=== PATIENT | female | born 1985 | race African-American/Black ===

== ENCOUNTER → 2016-06-20 | Outpatient (CLI) | payer BC, OTHER ==
[2016-06-20 12:40] LABS: CH 33.3; CHCM 35.3; HCT 38.1 % (34.0-46.0); HDW 2.84; HGB 12.9 gm/dL (11.4-16.0); MCH 32.2 pg (25.0-35.0); MCHC 33.9 g/dL (31.0-37.0); MCV 94.8 fL (80.0-100.0); Mean Platelet Volume 7.9; RBC 4.02 m/uL (3.80-5.40); RDW 12.9 % (11.5-15.5); WBC 7.2 k/uL (3.8-10.6)
== END | disposition home or self-care (01) ==
LOC: LABWHC1 11:09
PROVIDERS: ATTEND Obstetrics & Gynecology
DX: Z34.92 Encounter for supervision of normal pregnancy, unspecified, second trimester (principal); Z3A.00 Weeks of gestation of pregnancy not specified
CPT/HCPCS: 36415; 82950; 85027; 86850

== ENCOUNTER → 2016-07-01 | Outpatient (CLI) | payer BC, OTHER | END | disposition home or self-care (01) | LOC: LABWHC1 07:23 | PROVIDERS: ATTEND Obstetrics & Gynecology | DX: O99.810 Abnormal glucose complicating pregnancy (principal); Z3A.00 Weeks of gestation of pregnancy not specified | CPT/HCPCS: 36415; 82947; 82951; 82952 ==

== ENCOUNTER → 2016-07-12 | Outpatient (CLI) | payer BC, OTHER | END | disposition home or self-care (01) | LOC: LABWHC1 08:28 | PROVIDERS: ATTEND Obstetrics & Gynecology | DX: O99.810 Abnormal glucose complicating pregnancy (principal); Z3A.00 Weeks of gestation of pregnancy not specified | CPT/HCPCS: 36415; 82951; 82952 ==

== ENCOUNTER → 2016-07-16 | Outpatient (CLI) | payer BC, OTHER ==
[2016-07-16 11:30] LABS: CHCM 35.2; HCT 36.8 % (34.0-46.0); HDW 3.09; HGB 12.8 gm/dL (11.4-16.0); MCH 32.8 pg (25.0-35.0); MCHC 34.8 g/dL (31.0-37.0); MCV 94.2 fL (80.0-100.0); WBC 7.5 k/uL (3.8-10.6)
== END ==
LOC: LABWHC1 10:47
PROVIDERS: ATTEND Obstetrics & Gynecology
DX: Z34.82 Encounter for supervision of other normal pregnancy, second trimester (principal)
CPT/HCPCS: 36415; 82950; 85027

== ENCOUNTER 2016-09-06 06:00 | Inpatient (IN) | payer BC, OTHER ==
--- NOTE | 2016-09-05 19:50 | P.HPOB ---
History of Present Illness H&P Date: 09/05/16 Chief Complaint: Induction of labor This is a 31-year-old female 5 para 2 with an estimated date of confinement of 09/10/2016, estimated gestational age of 39-3/7 weeks, who presents for induction of labor. Her has been uncomplicated by gestational diabetes on DiaBeta for control. She has been fairly well controlled with this medication and diet. She has been getting routine nonstress tests. She has been feeling considerable pressure and irregular contractions. She admits to good movement and denies rupture membranes. labs: RPR-nonreactive HIV-nonreactive Random glucose-74 Hepatitis B surface antigen-negative Hemoglobin-12.4 Rubella-immune Blood type-B- Antibody screen-negative Obstetrical ultrasound-normal anatomy One hour Glucola-132, repeat-170 RhoGAM was given at approximately 28 weeks Group B streptococcus-negative, positive in previous Obstetrical history: . History of 2 vaginal deliveries at term. History of 1 miscarriage and 1 termination of . Gynecologic history: No history of sexual transmitted diseases. Review of Systems Constitutional: Denies chills, Denies fever Ears, nose, mouth and throat: Denies headache, Denies sore throat Cardiovascular: Denies chest pain, Denies shortness of breath Respiratory: Denies cough Gastrointestinal: Reports abdominal pain (Irregular contractions) Genitourinary: Reports abnormal vaginal bleeding, Reports pelvic pain, Reports Musculoskeletal: Reports low back pain Neurological: Denies numbness, Denies weakness Past Medical History Past Medical History: No Reported History History of Any Multi-Drug Resistant Organisms: None Reported Past Surgical History: Appendectomy, Hernia Repair (Umbilical hernia repair) Additional Past Surgical History / Comment(s): D&C Past Psychological History: No Psychological Hx Reported Smoking Status: Never smoker Past Alcohol Use History: None Reported Past Drug Use History: None Reported Medications and Allergies Home Medications Medication Instructions Recorded Confirmed Type Pnv with Ca,No.72/Iron/FA 1 each PO DAILY 03/11/16 08/28/16 History [ Plus Tablet] glyBURIDE [Glyburide] 1.25 mg PO BID 08/08/16 08/28/16 History Allergies Allergy/AdvReac Type Severity Reaction Status Date / Time peanut Allergy Mild Rash/Hives Verified 08/28/16 00:26 Exam Osteopathic Statement: *. No significant issues noted on an osteopathic structural exam other than those noted in the History and Physical/Consult. HEENT: Within normal limits Heart: Regular rate and rhythm Lungs: Clear to auscultation bilaterally Abdomen: Cervix: 3 cm/70%/-2 station heart tones: 140s by Doppler Extremities: Negative Homans Assessment and Plan (1) 39 weeks gestation of Status: Acute (2) Gestational diabetes mellitus (GDM) Status: Acute Plan: Proceed with oxytocin induction of labor. Expectant management. Close monitoring of blood sugars. We'll give prophylactic antibiotics due to history of group B streptococcus.
[2016-09-06] MEDS ORDERED: METHYLERGONOVINE 0.2 MG/ML 1 ML AMP IM PRN (06:27)
[2016-09-06] MEDS ORDERED: CARBOPROST TROMETHAMINE 250 MCG/ML 1 ML AMP IM PRN (06:27)
[2016-09-06] MEDS ORDERED: OXYTOCIN 30 UNITS/500 ML NS 30 UNIT in SALINE 1 500ML.BAG IV SCH ×2 (06:27→12:48)
[2016-09-06] MEDS ORDERED: TERBUTALINE 1 MG/ML VIAL SQ PRN (06:27)
[2016-09-06] MEDS ORDERED: LIDOCAINE 1% 20 ML VIAL (10MG/ML) FOR IV START INTRADERMA PRN (06:27)
[2016-09-06] MEDS ORDERED: OXYTOCIN 10 UNIT/ML 1 ML VIAL IM PRN (06:27)
[2016-09-06] MEDS ORDERED: LIDOCAINE 1% (PF) 10 MG/ML (30 ML SDV) SQ PRN (06:27)
[2016-09-06] MEDS ORDERED: AMPICILLIN 2,000 MG in SODIUM CHLORIDE 0.9% 100 ML IVPB STA (06:27)
[2016-09-06 06:33] LABS: Glucose,Whole Blood 80 mg/dL (75-99)
[2016-09-06 06:43] VITALS: BMI 30.1
[2016-09-06] MEDS: LACTATED RINGERS 1,000 ML IV SCH ×3 (06:49→10:51)
[2016-09-06 06:54] LABS: Basophils % (A) 0 %; CHCM 34.7; Eosinophils # (A) 0.1 k/uL (0-0.7); Eosinophils % (A) 2 %; HCT 36.5 % (34.0-46.0); HGB 12.4 gm/dL (11.4-16.0); Luc # (Auto) 0.13; Luc % (Auto) 2; Lymphocytes # (A) 1.7 k/uL (1.0-4.8); Lymphocytes % (A) 30 %; MCH 31.5 pg (25.0-35.0); MCHC 33.9 g/dL (31.0-37.0); MCV 92.9 fL (80.0-100.0); Mean Platelet Volume 8.3; Monocytes # (A) 0.3 k/uL (0-1.0); Monocytes % (A) 5 %; Neutrophils # (A) 3.2 k/uL (1.3-7.7); Neutrophils % (A) 59 %; RBC 3.93 m/uL (3.80-5.40); RDW 14.3 % (11.5-15.5); WBC 5.4 k/uL (3.8-10.6); WBC (Perox) 5.58
[2016-09-06 08:25] LABS: Hemoglobin A1C 4.7 % (4.2-6.1)
[2016-09-06] MEDS ORDERED: fentaNYL (PF) 50 MCG/ML 5 ML AMP ONE (09:00)
[2016-09-06] MEDS ORDERED: BUPIVACAINE (PF) 0.25% 30 ML VIAL ONE (09:00)
[2016-09-06] MEDS ORDERED: SODIUM CHLORIDE 0.9% 100 ML BAG ONE (09:00)
[2016-09-06] MEDS ORDERED: AMPICILLIN 1,000 MG in SODIUM CHLORIDE 0.9% 50 ML IVPB SCH (10:30)
[2016-09-06 11:15] LABS: Glucose,Whole Blood 71 mg/dL (75-99)
[2016-09-06] MEDS ORDERED: SIMETHICONE 80 MG CHEWABLE PO PRN (12:48)
[2016-09-06] MEDS ORDERED: diphenhydrAMINE 50 MG/ML 1 ML VIAL IVP PRN ×2 (12:48)
[2016-09-06] MEDS ORDERED: diphenhydrAMINE 50 MG CAP PO PRN (12:48)
[2016-09-06] MEDS ORDERED: BENZOCAINE/MENTHOL SPRAY 1 GM/SPRAY AEROSOL TOPICAL PRN (12:48)
[2016-09-06] MEDS ORDERED: HYDROCORTISONE 2.5% RECTAL CREAM 30 GM TUBE RECTAL PRN (12:48)
[2016-09-06] MEDS ORDERED: LANOLIN CREAM 5 GM TUBE TOPICAL PRN (12:48)
[2016-09-06] MEDS ORDERED: diphenhydrAMINE 25 MG CAP PO PRN (12:48)
[2016-09-06] MEDS ORDERED: Acetaminophen-Codeine 300-30mg TAB PO PRN (12:48)
[2016-09-06] MEDS ORDERED: ACETAMINOPHEN TAB 325 MG TAB PO PRN (12:48)
[2016-09-06] MEDS ORDERED: ZOLPIDEM 5 MG TAB PO PRN (12:48)
[2016-09-06] MEDS ORDERED: WITCH HAZEL 1 EACH MED..PAD TOPICAL PRN (12:48)
--- NOTE | 2016-09-06 13:37 | P.PROBDLV ---
Vaginal Delivery Note - . Vaginal Delivery Note: The patient progressed to complete dilation after oxytocin induction of labor and artificial rupture membranes with clear fluid noted. She did receive epidural anesthesia. Once reaching complete dilation, she began pushing. Infant's head came to a crown. With one further push, the infant's head delivered across the perineum followed by the remainder of the shoulder and the rest of the body. was placed on mother's abdomen and nose and mouth were bulb suctioned. Cord was clamped and cut and was taken to warmer for evaluation. A viable female was noted with scores of 8 at 1 minute and 9 at 5 minutes and weight of 7 lbs. 14 oz. Placenta delivered manually after waiting approximately 15-20 minutes. It was noted to be mildly adherent however no placental pieces were palpated after placing a gloved hand back inside the uterine cavity. Placenta appeared intact. Three- vessel cord was noted. Uterus contracted well after oxytocin was given and uterine massage was carried out. Inspection of the perineum revealed a very small abrasion periurethrally. This was noted to be hemostatic. Estimated blood loss is approximately 200 mL's. Mother and infant are in stable condition.
[2016-09-06] MEDS: IBUPROFEN 600 MG TAB PO PRN ×2 (16:16→22:51)
[2016-09-06] MEDS ORDERED: Rhogam IMMUNE GLOBULIN 1,500 UNIT/1 ML IM ONE (20:59)
[2016-09-06] MEDS: Acetaminophen-Codeine 300-30mg TAB PO PRN (21:08)
[2016-09-06] MEDS: SENNOSIDES-DOCUSATE SODIUM 1 EACH TAB PO SCH (21:10)
[2016-09-07] MEDS: Acetaminophen-Codeine 300-30mg TAB PO PRN ×3 (03:32→11:36)
[2016-09-07 04:15] VITALS: RESP 18
[2016-09-07] MEDS: IBUPROFEN 600 MG TAB PO PRN ×2 (05:55→13:23)
[2016-09-07] MEDS: SENNOSIDES-DOCUSATE SODIUM 1 EACH TAB PO SCH (07:44)
[2016-09-07 08:04] VITALS: BP 101/60; PULSE 82; TEMP 98.5
[2016-09-07 08:04] LABS: Basophils % (A) 0 %; CH 31.9; Eosinophils # (A) 0.1 k/uL (0-0.7); Eosinophils % (A) 1 %; HCT 31.7 % (34.0-46.0); HDW 3.28; HGB 10.8 gm/dL (11.4-16.0); Luc # (Auto) 0.09; Luc % (Auto) 1; Lymphocytes # (A) 1.3 k/uL (1.0-4.8); Lymphocytes % (A) 18 %; MCHC 33.9 g/dL (31.0-37.0); MCV 94.5 fL (80.0-100.0); Mean Platelet Volume 8.2; Monocytes # (A) 0.3 k/uL (0-1.0); Monocytes % (A) 4 %; Neutrophils # (A) 5.5 k/uL (1.3-7.7); Neutrophils % (A) 76 %; RBC 3.36 m/uL (3.80-5.40); RDW 14.3 % (11.5-15.5); WBC 7.3 k/uL (3.8-10.6); WBC (Perox) 7.14
--- NOTE | 2016-09-07 08:51 | P.DS ---
Providers Date of admission: 09/06/16 06:09 Expected date of discharge: 09/07/16 Attending physician: Allegra Blackwell Primary care physician: Stated None - Discharge Diagnosis(es) (1) 39 weeks gestation of Current Visit: Yes Status: Acute (2) Gestational diabetes mellitus (GDM) Current Visit: Yes Status: Acute Hospital Course: This is a 31-year-old female 5 para 2 at 39-2/7 weeks who presented for induction of labor. She underwent oxytocin induction of labor and delivered vaginally a viable female infant with scores of 8 at 1 minute and 9 at 5 minutes and infant weight of 7 lbs. 14 oz. Her course has been essentially uncomplicated although she does complain of severe cramping. She has been using ibuprofen and Tylenol 3 with some relief. Lochia is decreasing. She denies any large clots. Vital signs are stable. Abdomen is soft with fundus firm and nontender. Extremities show negative Homans. Impression is status post vaginal delivery day #1. Plan is to discharge home today per patient request. She will be given prescriptions for ibuprofen and Tylenol 3 and she is advised alternate between these medications. She will also be given a prescription for a breast pump although right now she is bottle feeding. She is advised follow-up in the office in 6 weeks for a check. Routine instructions are given. She is advised to call the office if she has any further questions or concerns prior to her appointment time. Procedures: Oxytocin induction of labor Spontaneous vaginal delivery of a viable female infant on 09/06/2016. Patient Condition at Discharge: Stable Plan - Discharge Summary New Discharge Prescriptions: Acetaminophen-Codeine 300-30mg [Tylenol w/codeine #3] 1 each PO Q4HR PRN #30 tab PRN Reason: Mild Pain exceeding Tylenol Ibuprofen [Motrin] 600 mg PO Q6HR PRN #60 tab PRN Reason: Mild Pain Or Fever >= 100.5 Discharge Medication List Pnv with Ca,No.72/Iron/FA [ Plus Tablet] 1 tab PO DAILY 03/11/16 [ History] Acetaminophen-Codeine 300-30mg [Tylenol w/codeine #3] 1 each PO Q4HR PRN #30 tab 09/07/16 [Rx] Ibuprofen [Motrin] 600 mg PO Q6HR PRN #60 tab 09/07/16 [Rx] Follow up Appointment(s)/Referral(s): Allegra Blackwell DO [Doctor of Osteopathic Medicine] - 6 Weeks Activity/Diet/Wound Care/Special Instructions: Instructions 1. Do not begin any exercise program for 3 weeks. 2. Do not resume sexual relations for 3 weeks or longer if uncomfortable. 3. You may take tub baths or showers at any time. 4. You may use tampons if desired after 3 weeks. 5. Keep the area of episiotomy (stitches) clean and dry. 6. If you are not nursing, wear a good fitting, supportive bra during the day and limit fluid intake for at least 1 week to prevent breast engorgement. 7. Call the office, [phone], within the next week to make appointment for your 6 week checkup if it has not already been made. 8. Report any of the following occurrences to the doctor promptly: a. Heavy, excessive bleeding b. Chills, fever c. Burning or frequency of urination d. Pain or redness and breasts if nursing e. Increasing pain or swelling in episiotomy (stitches). In addition to the above instructions, the following additional should be followed: 1. No heavy lifting or straining (exercising) until after 6 week checkup. 2. Keep abdominal incision clean and dry: You may wear a dressing if more comfortable. 3. Make office appointment for 10 days after going home or as instructed by her doctor. Discharge Disposition: HOME SELF-CARE
== END 2016-09-07 16:00 | disposition home or self-care (01) | DRG 775 ==
LOC: 4FBP 06:09
PROVIDERS: ADMIT Obstetrics & Gynecology; ATTEND Obstetrics & Gynecology
PROC: 3E033VJ Introduction of Other Hormone into Peripheral Vein, Percutaneous Approach (ICD-10-PCS; principal; 2016-09-06)
PROC: 10E0XZZ Delivery of Products of Conception, External Approach (ICD-10-PCS; principal; 2016-09-06)
PROC: 00HU33Z Insertion of Infusion Device into Spinal Canal, Percutaneous Approach (ICD-10-PCS; principal; 2016-09-06)
PROC: 3E0R3CZ (ICD-10-PCS; principal; 2016-09-06)
PROC: 10907ZC Drainage of Amniotic Fluid, Therapeutic from Products of Conception, Via Natural or Artificial Opening (ICD-10-PCS; principal; 2016-09-06)
DX: O24.425 Gestational diabetes mellitus in childbirth, controlled by oral hypoglycemic drugs (principal); O99.824 Streptococcus B carrier state complicating childbirth; Z37.0 Single live birth; Z3A.39 39 weeks gestation of pregnancy; Z79.84 Long term (current) use of oral hypoglycemic drugs
CPT/HCPCS: 83036; 85025; 85461; 88307

== ENCOUNTER 2017-06-29 04:05 | Outpatient (CLI) | payer BC, OTHER ==
[2017-06-29 04:24] LABS: Glucose,Whole Blood 97 mg/dL (75-99)
[2017-06-29 04:37] LABS: Appearance,Urine Cloudy (Clear); Bacteria,Urine Rare /hpf; Bilirubin,Urine Negative (Negative); Blood,Urine Negative (Negative); Color,Urine Yellow; Glucose,Urine (UA) Negative (Negative); Ketones,Urine 3+ (Negative); Leukocyte Esterase,Urine Negative (Negative); Mucus,Urine Moderate /hpf; Nitrite,Urine Negative (Negative); Protein,Urine 1+ (Negative); RBC,Urine 1 /hpf (0-5); Specific Gravity,Urine 1.026 (1.001-1.035); Squamous Epithelial Cell,Urine 6 /hpf (0-4); WBC,Urine 1 /hpf (0-5)
[2017-06-29] MEDS ORDERED: ONDANSETRON 4 MG/2 ML VIAL IVP STA (04:44)
[2017-06-29] MEDS ORDERED: LACTATED RINGERS 1,000 ML IV SCH ×2 (04:45→05:45)
[2017-06-29 04:51] VITALS: BP 119/69; PULSE 100; RESP 16; TEMP 97.3
[2017-06-29 05:02] LABS: Basophils % (A) 0 %; Eosinophils % (A) 0 %; HGB 11.2 gm/dL (11.4-16.0); Lymphocytes # (A) 0.7 k/uL (1.0-4.8); Lymphocytes % (A) 12 %; MCH 31.2 pg (25.0-35.0); MCV 94.5 fL (80.0-100.0); Mean Platelet Volume 7.6; Monocytes # (A) 0.3 k/uL (0-1.0); Monocytes % (A) 5 %; Neutrophils # (A) 4.4 k/uL (1.3-7.7); Neutrophils % (A) 82 %; Platelet Count 178 k/uL (150-450); RDW 12.6 % (11.5-15.5); WBC 5.4 k/uL (3.8-10.6)
[2017-06-29 05:14] LABS: ALT 16 U/L (9-52); AST 19 U/L (14-36); Albumin 3.6 g/dL (3.5-5.0); Alkaline Phosphatase 72 U/L (38-126); Amylase 113 U/L (30-110); Anion Gap 10 mmol/L; Blood Urea Nitrogen 8 mg/dL (7-17); Calcium 8.8 mg/dL (8.4-10.2); Carbon Dioxide 20 mmol/L (22-30); Chloride 106 mmol/L (98-107); Glucose 94 mg/dL (74-99); Lipase 338 U/L (23-300); Magnesium 1.7 mg/dL (1.6-2.3); Phosphorus 3.2 mg/dL (2.5-4.5); Potassium 3.4 mmol/L (3.5-5.1); Sodium 136 mmol/L (137-145); Total Bilirubin 0.4 mg/dL (0.2-1.3); Total Protein 6.6 g/dL (6.3-8.2)
--- NOTE | 2017-07-20 08:43 | P.MSEPDOC ---
Presenting Problems - Arrival Data Date of Arrival on Unit: 06/29/17 Time of Arrival on Unit: 04:06 Mode of Transport: Wheelchair - Complaint OB-Reason for Admission/Chief Complaint: Acute Nausea/Vomiting, Pain Comment: n/v since 1800, back pain, abd cramps that shoot down her legs Medical History - Information : 4 Para: 3 Term: 3 : 0 Abortions: Spontaneous or Elective: 0 Number of Living Children: 3 - Gestational Age Gestational Age by YANG (wks/days): 27 Weeks and 3 Days - History Complications: GDM, Smoker Review of Systems - Review of Systems Constitutional: No problems Breast: No problems ENT: No problems Cardiovascular: No problems Respiratory: No problems Gastrointestinal: No problems Genitourinary: No problems Musculoskeletal: No problems Neurological: No problems Skin: No problems Vital Signs - Temperature Temperature: 97.3 F Temperature Source: Temporal Artery Scan - Pulse Right Pulse Rate: 100 Pulse Assessment Method: Pulse Oximetry - Respirations Respiratory Rate: 16 O2 Sat by Pulse Oximetry: 98 - Blood Pressure Right Arm Blood Pressure: 119/69 Blood Pressure Mean: 85 Blood Pressure Source: Automatic Cuff Medical Screen Scoring (Pre) - Cervical Exam Dilation: Exam Deferred Effacement: Exam Deferred - Uterine Contractions Frequency: N/A Duration: N/A Intensity: N/A - Maternal Vital Signs Maternal Temperature: N/A Maternal Blood Pressure: N/A Signs of Preeclampsia: N/A - Pain Assessment Pain Location and Character: Abdomen Pain Scale Used: Numeric (1 - 10) Pain Intensity: 7 Pain Management Goal: 3 Pain Description: *Acute, Cramping, Shooting, Sore Pain Frequency: Intermittent Pain Duration: 6 Pain Duration Units: Hours Pain Behavior: Vocalization Pain Aggravating Factors: None - Total Score Total Score (Pre): 0 - Level of Risk Level of Risk: Low (0-5) Physician Notification (Pre) - Physician Notified Physician Notified Date: 06/29/17 Physician Notified Time: 04:43 Physician/Practitioner Notifed:: Dr Parnell - Notification Comment Comment: reported on c/o, n/v, UA results, vitals, fhts, no cntrx per pt or on monitor. abd soft and non tender. orders for IV, labs, zofran Medical Screen Scoring (Post) - Maternal Vital Signs Maternal Temperature: N/A Maternal Blood Pressure: N/A Signs of Preeclampsia: N/A Maternal Respirations: N/A - Pain Assessment Pain Location and Character: Back Pain Scale Used: Numeric (1 - 10) Pain Intensity: 4 Pain Frequency: Intermittent Pain Behavior: Vocalization - Total Score Total Score (Post): 0 Physician Notification (Post) - Physician Notified Physician Notified Date: 06/29/17 Physician Notified Time: 09:45 Physician/Practitioner Notified:: aleta Spoke With: aleta New Order Received: Yes (discharge home with instructions) - Notification Comment Comment: flu symtoms. lab work. v/n. iv hydration. Disposition - Disposition OB Disposition: Discharge to home Discharge Date: 06/29/17 Discharge Time: 10:00 I agree with the RN Medical Screening Exam: Yes Risk & Benefit of care provided described in d/c instruction: Yes Diagnosis: VOMITING OF , UNSPECIFIED
== END 2017-06-29 10:00 | disposition home or self-care (01) ==
LOC: FBPOP 04:05
PROVIDERS: ATTEND Obstetrics & Gynecology
DX: O21.9 Vomiting of pregnancy, unspecified (principal); Z3A.27 27 weeks gestation of pregnancy; O99.332 Smoking (tobacco) complicating pregnancy, second trimester
CPT/HCPCS: 99214; 96360; 96366; 96367; 96375; 80053; 82150; 83690; 83735; 84100; 85025; 81001; J2405

== ENCOUNTER 2017-08-04 09:33 | Outpatient (CLI) | payer BC, OTHER ==
[2017-08-04] MEDS ORDERED: BETAMET ACET-BETAMETH SOD PHOS 6 MG/ML VIAL IM SCH (10:00)
[2017-08-04 10:40] VITALS: BP 109/75; PULSE 90; RESP 16; TEMP 96.8
--- NOTE | 2017-09-20 08:50 | P.MSEPDOC ---
Presenting Problems - Arrival Data Date of Arrival on Unit: 08/04/17 Time of Arrival on Unit: 09:30 Mode of Transport: Ambulatory Medical History - Information : 4 Para: 3 Term: 3 : 0 Abortions: Spontaneous or Elective: 0 Number of Living Children: 3 - Gestational Age Gestational Age by YANG (wks/days): 32 Weeks and 4 Days Vital Signs - Temperature Temperature: 96.8 F Temperature Source: Temporal Artery Scan - Pulse Brachial Pulse Rate: 90 Pulse Assessment Method: Automatic Cuff - Respirations Respiratory Rate: 16 Oxygen Delivery Method: Room Air O2 Sat by Pulse Oximetry: 97 - Blood Pressure Right Arm Sitting Blood Pressure: 109/75 Blood Pressure Mean: 86 Blood Pressure Source: Automatic Cuff Medical Screen Scoring (Post) - Cervical Exam Dilation: Exam Deferred Effacement: Exam Deferred - Uterine Contractions Frequency: N/A Duration: N/A Intensity: N/A - Maternal Vital Signs Maternal Temperature: N/A Maternal Blood Pressure: N/A Signs of Preeclampsia: N/A Maternal Respirations: N/A - Pain Assessment Pain Intensity: 0 - Maternal Trauma Maternal Trauma: N/A - Assessment Heart Rate: 135 Heart Rate - NICHD Category: Category I (Normal) = 0 NST: Reactive Position: N/A Station: N/A - Total Score Total Score (Post): 0 - Post Treatment Level of Risk Post Treatment Level of Risk: N/A Physician Notification (Post) - Physician Notified Physician Notified Date: 08/04/17 Physician Notified Time: 10:25 Physician/Practitioner Notified:: Dr Blackwell New Order Received: Yes - Notification Comment Comment: pt was sent from the office for NST and Celestone. pt will return to the unit tomorrow for her second dose. Disposition - Disposition OB Disposition: Physician follow up in office, Discharge to home, Written follow up instructions reviewed Discharge Date: 08/04/17 Discharge Time: 10:26 I agree with the RN Medical Screening Exam: Yes Risk & Benefit of care provided described in d/c instruction: Yes Diagnosis: LABOR WITHOUT DELIVERY, THIRD TRIMESTER
== END 2017-08-04 10:26 | disposition home or self-care (01) ==
LOC: FBPOP 09:33
PROVIDERS: ATTEND Obstetrics & Gynecology
DX: O60.03 Preterm labor without delivery, third trimester (principal); Z3A.32 32 weeks gestation of pregnancy
CPT/HCPCS: 59025; 96372; J0702

== ENCOUNTER 2017-08-05 10:03 | Outpatient (CLI) | payer BC, OTHER ==
[2017-08-05 10:22] VITALS: BP 109/71; PULSE 100; RESP 16; TEMP 97.9
[2017-08-05] MEDS ORDERED: BETAMET ACET-BETAMETH SOD PHOS 6 MG/ML VIAL IM ONE (10:30)
--- NOTE | 2017-08-05 10:56 | P.MSEPDOC ---
Presenting Problems - Arrival Data Date of Arrival on Unit: 08/05/17 Time of Arrival on Unit: 10:09 Mode of Transport: Ambulatory - Complaint OB-Reason for Admission/Chief Complaint: Celestone Injection Medical History - Information : 4 Para: 3 Term: 3 : 0 Abortions: Spontaneous or Elective: 0 Number of Living Children: 3 - Gestational Age Gestational Age by YANG (wks/days): 31 Weeks and 2 Days Review of Systems - Review of Systems Constitutional: No problems Breast: No problems ENT: No problems Cardiovascular: No problems Respiratory: No problems Gastrointestinal: No problems Genitourinary: No problems Musculoskeletal: No problems Neurological: No problems Skin: No problems Vital Signs - Temperature Temperature: 97.9 F Temperature Source: Oral - Pulse Right Brachial Pulse Rate: 100 Pulse Assessment Method: Automatic Cuff - Respirations Respiratory Rate: 16 Oxygen Delivery Method: Room Air - Blood Pressure Right Arm Blood Pressure: 109/71 Blood Pressure Mean: 83 Blood Pressure Source: Automatic Cuff Medical Screen Scoring (Pre) - Cervical Exam Dilation: Exam Deferred - Maternal Vital Signs Maternal Temperature: N/A Signs of Preeclampsia: N/A - Total Score Total Score (Pre): 0 Physician Notification (Pre) - Physician Notified Physician Notified Date: 08/05/17 Physician Notified Time: 10:25 New Order Received: No - Notification Comment Comment: pt here for second dose of celestone injection Physician Notification (Post) - Notification Comment Comment: second dose of celestone and sent home Disposition - Disposition OB Disposition: Discharge to home Discharge Date: 08/05/17 Discharge Time: 10:40 I agree with the RN Medical Screening Exam: Yes Risk & Benefit of care provided described in d/c instruction: Yes Diagnosis: LABOR WITHOUT DELIVERY, THIRD TRIMESTER
== END 2017-08-05 10:40 | disposition home or self-care (01) ==
LOC: FBPOP 10:03
PROVIDERS: ATTEND Obstetrics & Gynecology
DX: O60.03 Preterm labor without delivery, third trimester (principal); Z3A.31 31 weeks gestation of pregnancy
CPT/HCPCS: 59025; 99214; 96372; J0702

== ENCOUNTER 2017-09-05 00:16 | Outpatient (CLI) | payer BC, OTHER ==
[2017-09-05 02:06] VITALS: BP 102/68; PULSE 100; RESP 16; TEMP 96.6
--- NOTE | 2017-09-10 07:55 | P.MSEPDOC ---
Presenting Problems - Arrival Data Date of Arrival on Unit: 09/05/17 Time of Arrival on Unit: 00:16 Mode of Transport: Ambulatory - Complaint OB-Reason for Admission/Chief Complaint: Possible Onset of Labor Medical History - Information : 4 Para: 3 Term: 3 : 0 Abortions: Spontaneous or Elective: 0 Number of Living Children: 3 - Gestational Age Gestational Age by YANG (wks/days): 37 Weeks and 1 Days Review of Systems - Review of Systems Constitutional: No problems Breast: No problems ENT: No problems Cardiovascular: No problems Respiratory: No problems Gastrointestinal: No problems Genitourinary: No problems Musculoskeletal: No problems Neurological: No problems Skin: No problems Vital Signs - Temperature Temperature: 96.6 F Temperature Source: Temporal Artery Scan - Pulse Right Brachial Pulse Rate: 100 Pulse Assessment Method: Automatic Cuff - Respirations Respiratory Rate: 16 Oxygen Delivery Method: Room Air - Blood Pressure Right Arm Blood Pressure: 102/68 Blood Pressure Mean: 79 Blood Pressure Source: Automatic Cuff Medical Screen Scoring (Pre) - Cervical Exam Dilation: 4-7 cm = 2 Membranes: Intact - Uterine Contractions Frequency: > 5 minutes apart = 1 Duration: N/A Intensity: N/A - Maternal Vital Signs Maternal Temperature: N/A Maternal Blood Pressure: N/A Signs of Preeclampsia: N/A Maternal Respirations: N/A - Pain Assessment Pain Location and Character: Abdomen Pain Scale Used: Numeric (1 - 10) Pain Intensity: 5 Pain Aggravating Factors: Contractions - Maternal Trauma Maternal Trauma: N/A - Assessment Baseline FHR: 135 Heart Rate - NICHD Category: Category I (Normal) = 0 NST: Reactive Position: N/A Station: N/A - Total Score Total Score (Pre): 3 - Level of Risk Level of Risk: Low (0-5) Physician Notification (Pre) - Physician Notified Physician Notified Date: 09/05/17 Physician Notified Time: 01:37 Physician/Practitioner Notifed:: Dr. Parnell Spoke With: Dr. Parnell New Order Received: Yes - Notification Comment Comment: Dr. Parnell called and given report on pt in. triage. Pt c/o. Reactive nst, vag exam of 4/60/-2. with no change after one hour. Irregular. contractions. Orders recieved to d/c pt to home. Disposition - Disposition Discharge Date: 09/05/17 Discharge Time: 01:45 I agree with the RN Medical Screening Exam: Yes Risk & Benefit of care provided described in d/c instruction: Yes Diagnosis: FALSE LABOR AT OR AFTER 37 COMPLETED WEEKS OF GESTATION
== END 2017-09-05 01:45 | disposition home or self-care (01) ==
LOC: FBPOP 00:16
PROVIDERS: ATTEND Obstetrics & Gynecology
DX: O47.1 False labor at or after 37 completed weeks of gestation (principal); Z3A.37 37 weeks gestation of pregnancy
CPT/HCPCS: 59025; 99213

== ENCOUNTER 2017-09-21 10:28 | Inpatient (IN) | payer BC, OTHER ==
[2017-09-21] MEDS ORDERED: METHYLERGONOVINE 0.2 MG/ML 1 ML AMP IM PRN (10:55)
[2017-09-21] MEDS ORDERED: LIDOCAINE 1% (PF) 10 MG/ML (30 ML SDV) SQ PRN (10:55)
[2017-09-21] MEDS ORDERED: TERBUTALINE 1 MG/ML VIAL SQ PRN (10:55)
[2017-09-21] MEDS ORDERED: OXYTOCIN 10 UNIT/ML 1 ML VIAL IM PRN (10:55)
[2017-09-21] MEDS ORDERED: CARBOPROST TROMETHAMINE 250 MCG/ML 1 ML AMP IM PRN (10:55)
[2017-09-21] MEDS ORDERED: AMPICILLIN 2,000 MG in SODIUM CHLORIDE 0.9% 100 ML IVPB STA (11:00)
[2017-09-21 11:16] VITALS: BMI 29.8
[2017-09-21 11:27] LABS: Basophils % (A) 0 %; Eosinophils % (A) 0 %; HCT 32.2 % (34.0-46.0); HGB 10.6 gm/dL (11.4-16.0); Hypochromasia Slight; Lymphocytes # (A) 1.3 k/uL (1.0-4.8); Lymphocytes % (A) 27 %; MCH 27.7 pg (25.0-35.0); MCHC 32.9 g/dL (31.0-37.0); MCV 84.3 fL (80.0-100.0); Mean Platelet Volume 7.7; Monocytes # (A) 0.3 k/uL (0-1.0); Monocytes % (A) 6 %; Neutrophils # (A) 3.1 k/uL (1.3-7.7); Neutrophils % (A) 64 %; Platelet Count 271 k/uL (150-450); Poikilocytosis Slight; RBC 3.82 m/uL (3.80-5.40); RDW 14.8 % (11.5-15.5); WBC 4.8 k/uL (3.8-10.6)
[2017-09-21] MEDS: LACTATED RINGERS 1,000 ML IV SCH ×2 (11:35→15:25)
[2017-09-21] MEDS ORDERED: OXYTOCIN 20 UNITS/1000 ML NS 1,000 ML IV SCH ×2 (11:45→16:17)
[2017-09-21] MEDS: AMPICILLIN 1,000 MG in SODIUM CHLORIDE 0.9% 50 ML IVPB SCH ×3 (11:50→21:09)
[2017-09-21] MEDS ORDERED: BUTORPHANOL 1 MG/ML 1 ML VIAL IV PRN (12:43)
--- NOTE | 2017-09-21 13:25 | P.HPOB ---
History of Present Illness H&P Date: 09/21/17 Chief Complaint: Advanced cervical dilation This is a 32-year-old female 6 para 3 with an estimated date of confinement of 10/05/2017, estimated gestational age of 38-0/7 weeks, who presents to labor and delivery with complaints of advanced cervical dilation. She was seen in the office today for her routine visit and has been feeling a lot of pelvic pressure and irregular contractions. She was noted to be dilated to 5-1/2-6 cm with a bulging bag of water and therefore was sent over to labor and delivery for advanced dilation and early labor. She was 4-1/ 2 cm at her last visit 1 week ago. She does have a history of rapid labors and therefore the concern was that she may deliver at home if we waited any longer. course has been complicated by dilation starting at 31 weeks. She did receive 2 doses of Celestone at that time. She also was placed on pelvic rest at that time. labs: Hepatitis B surface antigen-negative RPR-nonreactive Rubella-immune Blood type-B- Antibody screen-negative Hemoglobin-12.8 Random glucose-68 Obstetrical ultrasound-normal anatomy One hour Glucola-115 RhoGAM was given at approximately 28 weeks Group B streptococcus-positive Obstetrical history: . History of 3 vaginal deliveries at term. History of 1 miscarriage and 1 termination of . Gynecologic history: No history of sexually transmitted diseases. Review of Systems Constitutional: Denies chills, Denies fever Eyes: denies blurred vision, denies pain Ears, nose, mouth and throat: Denies headache, Denies sore throat Cardiovascular: Denies chest pain, Denies shortness of breath Respiratory: Denies cough Gastrointestinal: Reports abdominal pain (Irregular contractions) Genitourinary: Reports pelvic pain, Reports Musculoskeletal: Reports low back pain Integumentary: Denies pruritus, Denies rash Neurological: Denies numbness, Denies weakness Psychiatric: Denies anxiety, Denies depression Endocrine: Denies fatigue, Denies weight change Past Medical History Past Medical History: No Reported History History of Any Multi-Drug Resistant Organisms: None Reported Past Surgical History: Appendectomy, Hernia Repair Additional Past Surgical History / Comment(s): D&C Past Anesthesia/Blood Transfusion Reactions: No Reported Reaction Past Psychological History: No Psychological Hx Reported Smoking Status: Never smoker Past Alcohol Use History: None Reported Past Drug Use History: None Reported - Past Family History Mother Family Medical History: Cancer, Coronary Artery Disease (CAD) Medications and Allergies Home Medications Medication Instructions Recorded Confirmed Type Pnv,Calcium 72/Iron/Folic Acid 1 tab PO DAILY 03/11/16 09/21/17 History [ Plus Tablet] Allergies Allergy/AdvReac Type Severity Reaction Status Date / Time peanut Allergy Mild Rash/Hives Verified 09/21/17 11:32 Exam Osteopathic Statement: *. No significant issues noted on an osteopathic structural exam other than those noted in the History and Physical/Consult. - Vital Signs Vital signs: Vital Signs Temp Pulse Resp BP Pulse Ox 09/21/17 10:51 97.1 F L 95 18 113/80 95 Intake and Output 09/20/17 09/21/17 09/21/17 22:59 06:59 14:59 Intake Total 300 Balance 300 Intake: Intake, IV Titration 300 Amount Lactated Ringers 1,000 ml 300 @ 125 mls/hr IV .Q8H [facility] Rx#:[id number] Other: # Voids 1 Weight 78.925 kg HEENT: Within normal limits Heart: Regular rate and rhythm Lungs: Clear to auscultation bilaterally Abdomen: Cervix: 5-1/2-6 cm/70%/-3 station heart tones: Reactive Contractions: Irregular Extremities: Negative Homans Results Result Diagrams: 09/21/17 10:47 Abnormal Lab Results - Last 24 Hours (Table) 09/21/17 Range/Units 10:47 Hgb 10.6 L (11.4-16.0) gm/dL Hct 32.2 L (34.0-46.0) % Assessment and Plan (1) 38 weeks gestation of Current Visit: Yes Status: Acute Code(s): Z3A.38 - 38 WEEKS GESTATION OF SNOMED Code(s): 35449639 (2) Group B Streptococcus carrier, +RV culture, currently Current Visit: Yes Status: Acute Code(s): O99.820 - STREPTOCOCCUS B CARRIER STATE COMPLICATING SNOMED Code(s): 1960058414992 Plan: Plan is admission with antibiotic prophylaxis for group B streptococcus. Artificial rupture membranes and oxytocin augmentation of labor. Expectant management. Epidural anesthesia if desired.
[2017-09-21] MEDS ORDERED: diphenhydrAMINE 25 MG CAP PO PRN (16:17)
[2017-09-21] MEDS ORDERED: BENZOCAINE/MENTHOL SPRAY 1 GM/SPRAY AEROSOL TOPICAL PRN (16:17)
[2017-09-21] MEDS ORDERED: ZOLPIDEM 5 MG TAB PO PRN (16:17)
[2017-09-21] MEDS ORDERED: diphenhydrAMINE 50 MG/ML 1 ML VIAL IVP PRN ×2 (16:17)
[2017-09-21] MEDS ORDERED: HYDROCORTISONE 2.5% RECTAL CREAM 30 GM TUBE RECTAL PRN (16:17)
[2017-09-21] MEDS ORDERED: LANOLIN CREAM 5 GM TUBE TOPICAL PRN (16:17)
[2017-09-21] MEDS ORDERED: diphenhydrAMINE 50 MG CAP PO PRN (16:17)
[2017-09-21] MEDS ORDERED: ACETAMINOPHEN TAB 325 MG TAB PO PRN (16:17)
[2017-09-21] MEDS ORDERED: WITCH HAZEL 1 EACH MED..PAD TOPICAL PRN (16:17)
[2017-09-21] MEDS ORDERED: SIMETHICONE 80 MG CHEWABLE PO PRN (16:17)
[2017-09-21] MEDS: IBUPROFEN 600 MG TAB PO PRN (16:51)
[2017-09-21] MEDS ORDERED: Acetaminophen-Codeine 300-30mg TAB PO STA (17:27)
--- NOTE | 2017-09-21 17:35 | P.PROBDLV ---
Vaginal Delivery Note - . Vaginal Delivery Note: The patient progressed to approximate 9-9-1/2 cm and was unable to get epidural due to her fast progression of labor. At this point she had a strong urge to push. She tried to breathe through a couple contractions but felt that she needed to push. I did drain her bladder with a catheter. I allowed her to push and helped to push her cervix back with my fingers. Her cervix did open to complete. She was able to bring baby's head to a crown. With one further push the 's head delivered across the perineum and a left occiput anterior lie. She was advised to give another push to release the shoulder and when she did this the shoulder did not release. She was placed in Elza position and instructed to push one further time. This did not release the anterior or right shoulder. With the next push, suprapubic pressure was applied by nursing staff and the shoulder released. The remainder of the baby easily delivered and was placed on mother's abdomen. Nose and mouth were bulb suctioned. Cord was clamped and cut and was taken to warmer for evaluation. A viable male infant was noted with scores of 9 at 1 minute and 9 at 5 minutes and weight of 8 lbs. 8 oz. Some facial bruising was noted. Baby was moving both arms easily. The entire shoulder dystocia lasted less than 1 minute. Placenta delivered shortly thereafter, intact, with a three -vessel cord. Uterus did contract well after oxytocin was given and uterine massage was carried out. Inspection of the perineum revealed no perineal lacerations. Estimated blood loss was approximately 100 mL's. Both mother and are in stable condition.
[2017-09-21] MEDS ORDERED: HYDROcodone/APAP 5-325MG 1 EACH TAB PO PRN (20:27)
[2017-09-21] MEDS: SENNOSIDES-DOCUSATE SODIUM 1 EACH TAB PO SCH (20:33)
[2017-09-22] MEDS: HYDROcodone/APAP 5-325MG 1 EACH TAB PO PRN ×3 (00:02→08:10)
[2017-09-22] MEDS ORDERED: Rhogam IMMUNE GLOBULIN 1,500 UNIT/1 ML IM ONE (00:37)
[2017-09-22] MEDS: IBUPROFEN 600 MG TAB PO PRN ×3 (00:58→17:44)
[2017-09-22 08:08] LABS: Basophils % (A) 0 %; Eosinophils % (A) 0 %; HCT 29.6 % (34.0-46.0); HGB 9.8 gm/dL (11.4-16.0); Hypochromasia Slight; Lymphocytes # (A) 1.9 k/uL (1.0-4.8); Lymphocytes % (A) 23 %; MCH 28.3 pg (25.0-35.0); MCV 85.9 fL (80.0-100.0); Mean Platelet Volume 7.5; Monocytes # (A) 0.4 k/uL (0-1.0); Monocytes % (A) 5 %; Neutrophils # (A) 5.7 k/uL (1.3-7.7); Neutrophils % (A) 69 %; Platelet Count 272 k/uL (150-450); Poikilocytosis Slight; RBC 3.45 m/uL (3.80-5.40); RDW 14.9 % (11.5-15.5); WBC 8.2 k/uL (3.8-10.6)
[2017-09-22] MEDS: SENNOSIDES-DOCUSATE SODIUM 1 EACH TAB PO SCH (08:10)
[2017-09-22 09:07] VITALS: RESP 18
[2017-09-22] MEDS ORDERED: HYDROcodone/APAP 7.5-325MG 1 EACH TAB PO PRN (09:11)
--- NOTE | 2017-09-22 09:18 | P.DS ---
Providers Date of admission: 09/21/17 10:28 Expected date of discharge: 09/22/17 Attending physician: Allegra Blackwell Primary care physician: Stated None - Discharge Diagnosis(es) (1) 38 weeks gestation of Current Visit: Yes Status: Acute (2) Group B Streptococcus carrier, +RV culture, currently Current Visit: Yes Status: Acute Hospital Course: This is a 32-year-old female 6 para 3 at 38-0/7 weeks who presented with advanced cervical dilation. She underwent oxytocin augmentation of labor and artificial rupture membranes with clear fluid noted. She delivered vaginally a viable male infant on 09/21/2017 with scores of 9 at 1 minute and 9 at 5 minutes and weight of 8 lbs. 8 oz. Shoulder dystocia was encountered and managed with Elza and suprapubic pressure. Her course has been complicated by pelvic pain worse when she ambulates. She states her pain is more in her groin and suprapubic area. She has been using [place] with some relief. She would still like to go home later today. Vital signs are stable. Abdomen is soft with fundus firm and nontender. Lochia is decreasing. Suprapubic area is palpated and is slightly tender but does feel intact. Extremities show negative Homans. Impression is status post vaginal delivery day #1. Plan is to discharge home later today. Routine instructions are given. She will be given prescriptions for ibuprofen and [place] to go home with. She is advised to return to the office in approximately 6 weeks for a check. She is advised to call the office however if her pain does not improve within the next week. She is bottle feeding. Procedures: Oxytocin augmentation of labor Spontaneous vaginal delivery of a viable male on 09/21/2017 Patient Condition at Discharge: Stable Plan - Discharge Summary Discharge Rx Participant: Yes New Discharge Prescriptions: New HYDROcodone/APAP 7.5-325MG [[place] 7.5-325] 1 each PO Q6H PRN #12 tab PRN Reason: Pain Scale 6 To 10 Ibuprofen [Motrin] 600 mg PO Q6HR PRN #60 tab PRN Reason: Mild Pain Or Fever >= 100.5 Continue Pnv,Calcium 72/Iron/Folic Acid [ Plus Tablet] 1 tab PO DAILY Discharge Medication List Pnv,Calcium 72/Iron/Folic Acid [ Plus Tablet] 1 tab PO DAILY 03/11/16 [ History] HYDROcodone/APAP 7.5-325MG [[place] 7.5-325] 1 each PO Q6H PRN #12 tab 09/22/17 [ Rx] Ibuprofen [Motrin] 600 mg PO Q6HR PRN #60 tab 09/22/17 [Rx] Follow up Appointment(s)/Referral(s): Allegra Blackwell DO [Doctor of Osteopathic Medicine] - 6 Weeks Activity/Diet/Wound Care/Special Instructions: Instructions 1. Do not begin any exercise program for 3 weeks. 2. Do not resume sexual relations for 3 weeks or longer if uncomfortable. 3. You may take tub baths or showers at any time. 4. You may use tampons if desired after 3 weeks. 5. Keep the area of episiotomy (stitches) clean and dry. 6. If you are not nursing, wear a good fitting, supportive bra during the day and limit fluid intake for at least 1 week to prevent breast engorgement. 7. Call the office, [phone], within the next week to make appointment for your 6 week checkup if it has not already been made. 8. Report any of the following occurrences to the doctor promptly: a. Heavy, excessive bleeding b. Chills, fever c. Burning or frequency of urination d. Pain or redness and breasts if nursing e. Increasing pain or swelling in episiotomy (stitches). In addition to the above instructions, the following additional should be followed: 1. No heavy lifting or straining (exercising) until after 6 week checkup. 2. Keep abdominal incision clean and dry: You may wear a dressing if more comfortable. 3. Make office appointment for 10 days after going home or as instructed by her doctor. Discharge Disposition: HOME SELF-CARE
[2017-09-22 17:24] VITALS: BP 112/68; PULSE 71; TEMP 98.2
== END 2017-09-22 18:15 | disposition home or self-care (01) | DRG 775 ==
LOC: 4FBP 10:28
PROVIDERS: ADMIT Obstetrics & Gynecology; ATTEND Obstetrics & Gynecology
PROC: 10E0XZZ Delivery of Products of Conception, External Approach (ICD-10-PCS; principal; 2017-09-21)
PROC: 3E0234Z Introduction of Serum, Toxoid and Vaccine into Muscle, Percutaneous Approach (ICD-10-PCS; 2017-09-22)
DX: O66.0 Obstructed labor due to shoulder dystocia (principal); O26.893 Other specified pregnancy related conditions, third trimester; Z67.21 Type B blood, Rh negative; O99.824 Streptococcus B carrier state complicating childbirth; Z37.0 Single live birth; Z3A.38 38 weeks gestation of pregnancy; Z91.010 Allergy to peanuts; Z79.899 Other long term (current) drug therapy; Z82.49 Family history of ischemic heart disease and other diseases of the circulatory system; Z80.9 Family history of malignant neoplasm, unspecified
CPT/HCPCS: 85025; 85461; 86850; 86900; 86901; 88307

== ENCOUNTER → 2017-11-22 | Outpatient (CLI) | payer BC, OTHER ==
[2017-11-22 14:28] LABS: Anisocytosis Slight; Basophils % (A) 1 %; Eosinophils % (A) 0 %; HCT 38.8 % (34.0-46.0); Lymphocytes % (A) 35 %; MCH 27.7 pg (25.0-35.0); MCHC 33.2 g/dL (31.0-37.0); MCV 83.3 fL (80.0-100.0); Mean Platelet Volume 7.7; Monocytes # (A) 0.2 k/uL (0-1.0); Monocytes % (A) 4 %; Neutrophils # (A) 3.3 k/uL (1.3-7.7); Neutrophils % (A) 58 %; Platelet Count 219 k/uL (150-450); RBC 4.65 m/uL (3.80-5.40); RDW 16.3 % (11.5-15.5); WBC 5.7 k/uL (3.8-10.6)
[2017-11-22 14:30] LABS: HGB 12.9 gm/dL (11.4-16.0)
== END | disposition home or self-care (01) ==
LOC: LABPAT 13:20
PROVIDERS: ATTEND Obstetrics & Gynecology
DX: Z01.812 Encounter for preprocedural laboratory examination (principal)
CPT/HCPCS: 36415; 85025

== ENCOUNTER 2017-11-29 05:46 | Observation (INO) | payer BC, OTHER ==
[2017-11-23 10:20] VITALS: BMI 27.4
--- NOTE | 2017-11-28 12:55 | P.HPOB ---
History of Present Illness H&P Date: 11/28/17 Chief Complaint: Family planning This is a 32-year-old female 6 para 4 who presents for laparoscopic bilateral tubal ligation via fulguration for family planning. She is also scheduled for a ventral hernia repair by Dr. Jarvis. She recently delivered her last child and wishes permanent sterilization. Obstetrical history: . History of 4 vaginal deliveries and 2 miscarriages. Gynecologic history: No history of sexual transmitted diseases. Social history: She is . She currently works at [employer]. Review of Systems Constitutional: Denies chills, Denies fever Eyes: denies blurred vision, denies pain Ears, nose, mouth and throat: Denies headache, Denies sore throat Cardiovascular: Denies chest pain, Denies shortness of breath Respiratory: Denies cough Gastrointestinal: Denies abdominal pain, Denies diarrhea, Denies nausea, Denies vomiting Genitourinary: Reports pelvic pain Musculoskeletal: Reports myalgias Integumentary: Denies pruritus, Denies rash Neurological: Denies numbness, Denies weakness Psychiatric: Denies anxiety, Denies depression Past Medical History Past Medical History: No Reported History Additional Past Medical History / Comment(s): VENTRAL HERNIA History of Any Multi-Drug Resistant Organisms: None Reported Past Surgical History: Appendectomy, Hernia Repair Additional Past Surgical History / Comment(s): D&C, x 1 Past Anesthesia/Blood Transfusion Reactions: No Reported Reaction Past Psychological History: Depression Smoking Status: Current some day smoker Past Alcohol Use History: None Reported Past Drug Use History: None Reported - Past Family History Mother Family Medical History: Cancer, Coronary Artery Disease (CAD) Medications and Allergies Home Medications Medication Instructions Recorded Confirmed Type No Known Home Medications 11/23/17 11/23/17 History Allergies Allergy/AdvReac Type Severity Reaction Status Date / Time peanut Allergy Mild Rash/Hives Verified 11/23/17 10:15 Exam Osteopathic Statement: *. No significant issues noted on an osteopathic structural exam other than those noted in the History and Physical/Consult. HEENT: Within normal limits Heart: Regular rate and rhythm Lungs: Clear to auscultation bilaterally Abdomen: Soft, nontender Pelvic exam: Uterus is small, anteverted, with no adnexal masses or tenderness noted. However she is tender over her pubic symphysis. Extremities: Negative Homans Assessment and Plan (1) Family planning Status: Acute Code(s): Z30.09 - ENCOUNTER FOR OTH GENERAL CNSL AND ADVICE ON CONTRACEPTION SNOMED Code(s): 542170277 Plan: Proceed with laparoscopic bilateral tubal ligation via fulguration. I have discussed the risks, benefits, and alternative therapies for the above- mentioned procedure and for both sedation/anesthesia as well as necessary blood products administration, if indicated, as they pertain to this patient. The patient has indicated her understanding and acceptance of the risks and procedures discussed.
[~2017-11-29 05:46] MED LIST: DEXAMETHASONE SOD PHOSPHATE 10 MG/ML 1 ML VIAL IV ONE; HEPARIN SODIUM,PORCINE 5,000 UNIT/ML 1 ML VIAL SQ ONE; ONDANSETRON 4 MG/2 ML VIAL IVP ONE; SCOPOLAMINE 1.5MG/72HR PATCH TRANSDERM ONE; ceFAZolin IN SWFI 2 GM/20 ML SYRINGE IVP ONE; fentaNYL (PF) 50 MCG/ML 2 ML AMP IV PRN
[2017-11-29] MEDS ORDERED: LIDOCAINE 1% 20 ML VIAL (10MG/ML) FOR IV START INTRADERMA ONE (06:43)
[2017-11-29] MEDS: LACTATED RINGERS 1,000 ML IV SCH ×2 (06:43→11:59)
--- NOTE | 2017-11-29 07:42 | P.GSHP ---
History of Present Illness H&P Date: 11/29/17 Chief Complaint: Ventral hernia This a 2-year-old female who presents today for laparoscopic robotic system repair of ventral hernia. Patient is also going to have a concomitant tubal ligation performed by Dr. Blackwell. Patient has developed a mass above her umbilicus. Past Medical History Past Medical History: No Reported History Additional Past Medical History / Comment(s): VENTRAL HERNIA History of Any Multi-Drug Resistant Organisms: None Reported Past Surgical History: Appendectomy, Hernia Repair Additional Past Surgical History / Comment(s): D&C, x 1 Past Anesthesia/Blood Transfusion Reactions: No Reported Reaction Past Psychological History: Depression Smoking Status: Current some day smoker Past Alcohol Use History: None Reported Past Drug Use History: None Reported - Past Family History Mother Family Medical History: Cancer, Coronary Artery Disease (CAD) Medications and Allergies Home Medications Medication Instructions Recorded Confirmed Type No Known Home Medications 11/23/17 11/29/17 History Allergies Allergy/AdvReac Type Severity Reaction Status Date / Time peanut Allergy Mild Rash/Hives Verified 11/29/17 06:19 Surgical - Exam Vital Signs Temp Pulse BP Pulse Ox 98.0 F 75 115/71 100 11/29/17 06:47 11/29/17 06:47 11/29/17 06:47 11/29/17 06:47 - General well developed, no distress - Eyes PERRL - ENT normal pinna - Neck no masses - Respiratory normal expansion - Cardiovascular Rhythm: regular - Abdomen Abdomen: soft, non tender (3 cm ventral hernia umbilicus) Assessment and Plan Assessment: Ventral hernia we'll perform laparoscopic robotic repair. Dr. Harris perform a laparoscopic tubal ligation prior to me repairing the hernia.
[2017-11-29] MEDS ORDERED: BUPIVACAIN-EPI 0.5%-1:200,000 30 ML VIAL SQ ONE ×2 (07:52→08:29)
--- NOTE | 2017-11-29 07:57 | P.OP ---
Date of Procedure: 11/29/17 Preoperative Diagnosis: Family planning Postoperative Diagnosis: Same Procedure(s) Performed: Laparoscopic bilateral tubal ligation via fulguration Anesthesia: CHAPINCITO Surgeon: Allegra Blackwell Estimated Blood Loss (ml): 5 Pathology: none sent Condition: stable Disposition: same day Indications for Procedure: This is a 32-year-old female 6 para 4 who presents for laparoscopic bilateral tubal ligation via fulguration for family planning. She is also scheduled for a ventral hernia repair by Dr. Jarvis. She recently delivered her last child and wishes permanent sterilization. Operative Findings: Uterus is mid position. Normal uterus tubes and ovaries are noted. Description of Procedure: The patient is taken to the operating room where she is placed in the dorsal lithotomy position. She is prepped and draped in the normal sterile fashion. Examination is performed under anesthesia. Uterus is found to be in a mid position. No adnexal masses were palpated. Next a bivalve speculum was placed in the patient's vagina. A single-tooth tenaculum was used to grasp the anterior lip of the cervix. The uterus was sounded to 8 cm. The kroner uterine manipulator was then inserted through the cervix and the balloon was inflated. The single-tooth tenaculum is removed speculum was removed gloves were changed and attention was turned to the abdomen. The infraumbilical fold was grasped in transverse fashion with 2 Allis clamps. A small transverse incision was made with a scalpel. A hemostat was used to carry the incision down to the underlying layer of fascia. A towel clip was placed above the umbilicus for retraction. A 11 mm disposable bladeless trocar was then inserted into the peritoneal cavity under direct visualization. Once inside, pneumoperitoneum was achieved with CO2 gas. The insert was removed and the camera was placed. Intraperitoneal placement was confirmed. No bleeding was noted. Next the patient was placed in Trendelenburg position. A small stab incision was made suprapubically and a 5 mm disposable bladeless trocar was inserted into the peritoneal cavity under direct visualization. Once inside pelvic contents were inspected. Next a bipolar Kleppinger instrument was placed through the inferior trocar and the midportion of each tube was brought away from other structures and completely fulgurated on approximate 2-3 cm segment of each tube. Excellent hemostasis was noted. A picture was taken. Trochars were left in place for Dr. Sun is to perform his portion of the surgery. Next the kroner uterine manipulator was removed. Minimal bleeding was noted. All sponge and needle counts are correct. Dr. Jarvis will take over for the hernia repair at this point.
[2017-11-29] MEDS ORDERED: LACTATED RINGERS 1,000 ML IV ONE (08:48)
[2017-11-29] MEDS: HYDROmorphone 0.5 MG/0.5 ML SYRINGE IVP PRN ×6 (09:27→14:20)
--- NOTE | 2017-11-29 09:36 | P.OP ---
Date of Procedure: 11/29/17 Preoperative Diagnosis: Ventral hernia Postoperative Diagnosis: Incisional hernia Procedure(s) Performed: Laparoscopic robot-assisted repair of incisional hernia Anesthesia: CHAPINCITO Surgeon: Yosvany Jarvis Estimated Blood Loss (ml): 5 Pathology: none sent Condition: stable Disposition: PACU Description of Procedure: The patient had a previous tubal ligation performed by Dr. Blackwell. This was done just before my procedure. Please see her operative note for details. I was not present for the tubal ligation procedure. This procedure was performed by Dr. Blackwell. I was called the room after Dr. Blackwell had finished her procedure. Patient was already prepped and draped. She had an incisional hernia located above the umbilicus. The patient had a 5 mm trocar placed in the midline pubic position and a 10 mm trocar placed at the umbilicus that had been previously placed by Dr. Blackwell. The laparoscope was placed at the 10 mm umbilical trocar. And then a 8 mm robotic trochars placed the left upper quadrant and a another 8 mm trochars placed in the left lower quadrant and a 12 mm trochars placed in the left lateral position under direct visualization. The patient's incisional hernia was visualized. The patient was also noted to have bilateral inguinal hernias. The 5 mm trocar appeared to be near the dome of the bladder however there was no evidence of any injury to the bladder. The incisional hernia was visualized. Using hook cautery the peritoneum over the incisional hernia was excised. The fascial opening was repaired using 0 stratafix suture. Next a piece of 11 cm round ventral light ST mesh was placed into the. Cavity and secured with 2 OV lock suture. The patient was undocked the robot. The needles were retrieved. The fascia of the 12 mm trocar site was closed with 0 Ethibond suture. The trochars withdrawn. Skin was closed interrupted 3-0 Monocryl suture. Dermabond dressings was applied. Patient tolerated procedure well and was sent to recovery room stable condition.
[2017-11-29] MEDS ORDERED: MEPERIDINE 50 MG/ML SYRINGE IVP ONE (09:37)
[2017-11-29] MEDS ORDERED: HYDROcodone/APAP 7.5-325MG 1 EACH TAB PO ONE (10:42)
[2017-11-29] MEDS ORDERED: ONDANSETRON 4 MG/2 ML VIAL IVP PRN (14:53)
--- NOTE | 2017-11-29 16:43 | CONS ---
CONSULTATION DATE OF SERVICE: 11/29/2017 REASON FOR CONSULTATION: Advice regarding depression and multiple other medical issues requested by Dr. Jarvis. HISTORY OF PRESENT ILLNESS: This 32-year-old woman with a past history of ventral hernia, appendectomy, depression, nicotine dependence being followed by Dr. Poole in the outpatient setting underwent laparoscopic bilateral tubal ligation and as well as laparoscopic robot assisted repair incisional hernia also. There is no history of fever, rigors. No history of headache, loss of consciousness, seizures. PAST MEDICAL HISTORY: History of ventral hernia, history of appendectomy, history of depression, nicotine dependence. MEDICATIONS: Medications prior to admission, home medications: 1. [place] 7.5 q.4h p.r.n. 2. Colace 100 mg b.i.d. ALLERGIES: Are PEANUTS. FAMILY HISTORY: History of cancer, coronary artery disease in the family. SOCIAL HISTORY: Occasional smoker. REVIEW OF SYSTEMS: ENT: No diminished hearing or vision. CARDIOVASCULAR: No angina. RESPIRATORY: No cough. GI: As mentioned earlier. : No dysuria. NERVOUS SYSTEM: No numbness or weakness. ALLERGY/IMMUNOLOGY: No asthma or hayfever. MUSCULOSKELETAL: As mentioned earlier. HEMATOLOGY/ONCOLOGY: No history of anemia. ENDOCRINE: No history of diabetes or hypothyroidism. CONSTITUTIONAL: As mentioned. DERMATOLOGY: Negative. RHEUMATOLOGY: Negative. PSYCHIATRY: As mentioned earlier. PHYSICAL EXAMINATION: Alert and oriented x2. Pulse 100, blood pressure 100/77, respiratory 20, temperature normal, pulse ox 100% on room air. HEENT: Conjunctivae normal. Oral mucosa moist. NECK: No jugular venous distention. No lymph node enlargement. CARDIOVASCULAR: S1, S2. RESPIRATORY: Breath sounds diminished in the bases. No rhonchi, no crackles. ABDOMEN: Soft, status post surgery. LEGS: No edema. NERVOUS SYSTEM: No focal deficits. JOINTS: No active deforming arthropathy. SKIN: No ulcer, rash or bleeding. LABS: Not available. Previous labs: Preop CBC within normal limits. Chemistry showed sodium 130, potassium 3.4, amylase and lipase slightly elevated. UA was unremarkable. ASSESSMENT: 1. Status post laparoscopic repair of incisional hernia and as well as laparoscopic bilateral tubal ligation. 2. History of appendectomy. 3. History of ventral hernia. 4. History of depression. 5. History of nicotine dependence. RECOMMENDATIONS AND DISCUSSION: This 32-year-old woman presented after surgery, at this time I recommend to continue current management and symptomatic treatment. I recommend to monitor closely, incentive spirometry, DVT prophylaxis. Otherwise patient may be asked to follow with Dr. Poole closely after discharge. Smoking cessation has been advised. The patient declines nicotine patch at this time. Guarded prognosis. Further recommendations to follow. MMODL / IJN: [id number] /
[2017-11-29] MEDS: HYDROmorphone 1 MG/ML 1 ML SYRINGE IVP PRN ×2 (18:17→21:10)
[2017-11-30] MEDS ORDERED: HYDROmorphone 1 MG/ML 1 ML SYRINGE ONE (01:55)
[2017-11-30 06:41] LABS: Anisocytosis Slight; Basophils % (A) 0 %; Eosinophils # (A) 0.1 k/uL (0-0.7); Eosinophils % (A) 1 %; HCT 33.3 % (34.0-46.0); HGB 11.2 gm/dL (11.4-16.0); Lymphocytes # (A) 2.1 k/uL (1.0-4.8); Lymphocytes % (A) 35 %; MCH 28.6 pg (25.0-35.0); MCHC 33.8 g/dL (31.0-37.0); MCV 84.5 fL (80.0-100.0); Mean Platelet Volume 7.3; Monocytes # (A) 0.3 k/uL (0-1.0); Monocytes % (A) 5 %; Neutrophils # (A) 3.4 k/uL (1.3-7.7); Neutrophils % (A) 57 %; Platelet Count 175 k/uL (150-450); RBC 3.94 m/uL (3.80-5.40); RDW 16.3 % (11.5-15.5)
[2017-11-30] MEDS: HYDROmorphone 1 MG/ML 1 ML SYRINGE IVP PRN (07:11)
[2017-11-30 07:31] LABS: ALT 35 U/L (9-52); AST 23 U/L (14-36); Albumin 3.3 g/dL (3.5-5.0); Alkaline Phosphatase 49 U/L (38-126); Anion Gap 8 mmol/L; Blood Urea Nitrogen 12 mg/dL (7-17); Calcium 8.7 mg/dL (8.4-10.2); Carbon Dioxide 22 mmol/L (22-30); Chloride 108 mmol/L (98-107); Glucose 87 mg/dL (74-99); Potassium 3.8 mmol/L (3.5-5.1); Sodium 138 mmol/L (137-145); Total Bilirubin 0.4 mg/dL (0.2-1.3); Total Protein 5.6 g/dL (6.3-8.2)
[2017-11-30] MEDS ORDERED: HYDROcodone/APAP 7.5-325MG 1 EACH TAB PO PRN (10:24)
[2017-11-30 11:41] VITALS: BP 108/70; PULSE 60; RESP 16; TEMP 98.3
--- NOTE | 2017-11-30 18:36 | PN ---
PROGRESS NOTE DATE OF SERVICE: 11/30/2017. INTERIM HISTORY: A 32-year-old woman who was admitted after ventral hernia repair, is being closely monitored. No chest pain. No palpitations. No fever. EXAM: Alert and oriented x3. Pulse is 71, blood pressure 120/77, respirations 18, temperature 98.4, pulse ox 96% on room air. HEENT: Conjunctivae normal. NECK: No jugular venous distention. CARDIOVASCULAR: S1, S2 muffled. RESPIRATORY: Breath sounds diminished in the bases. No rhonchi. No crackles. ABDOMEN: Soft. Status post surgery. LEGS: No edema. NERVOUS SYSTEM: No focal deficits. LABS: Hemoglobin 11.2. ASSESSMENT: 1. Status post laparoscopic band repair of the incisional hernia as well as laparoscopic bilateral tubal ligation. 2. History of appendectomy. 3. History of ventral hernia. 4. History of depression. 5. History of nicotine dependence. RECOMMENDATIONS AND DISCUSSION: Recommend to continue current medical management and symptomatic treatment. Otherwise, closely monitor, closely follow with Surgery. Recommend close followup in the outpatient setting. MMODL / IJN: [id number] /
== END 2017-11-30 13:03 | disposition home or self-care (01) ==
LOC: OR 05:46 → 6PED 09:11 → OR 11-30 05:17
PROVIDERS: ADMIT Surgery; ATTEND Surgery
DX: K43.2 Incisional hernia without obstruction or gangrene (principal); Z30.2 Encounter for sterilization; F32.9 Major depressive disorder, single episode, unspecified; F17.200 Nicotine dependence, unspecified, uncomplicated; Z90.89 Acquired absence of other organs; Z91.010 Allergy to peanuts; Z82.49 Family history of ischemic heart disease and other diseases of the circulatory system; Z80.9 Family history of malignant neoplasm, unspecified
CPT/HCPCS: 49654; 58670; S2900; 36415; 80053; 81025; 85025; 86850; 86870; 86880; 86900; 86901

== ENCOUNTER → 2018-05-23 | Outpatient (CLI) | payer OTHER ==
--- NOTE | 2018-05-23 11:14 | US ---
EXAMINATION TYPE: US pelvic complete DATE OF EXAM: 05/23/2018 COMPARISON: CT CLINICAL HISTORY: N92.1 Excessive and frequent menstruation with irr. Pt states frequent, abnormal va ginal bleeding x few months TECHNIQUE: Transabdominal (TA). Transabdominal sonographic images of the pelvis were acquired. Date of LMP: 05/15/2018 EXAM MEASUREMENTS: Uterus: 8.3 x 4.0 x 6.1 cm Endometrial Stripe: 0.6 cm Right Ovary: 2.5 x 2.1 x 1.6 cm Left Ovary: 3.0 x 2.7 x 1.7 cm 1. Uterus: Anteverted Appeared wnl 2. Endometrium: wnl 3. Right Ovary: wnl, follicles 4. Left Ovary: wnl, follicles 5. Bilateral Adnexa: wnl 6. Posterior cul-de-sac: wnl IMPRESSION: 1. Normal pelvic ultrasound.
[2018-05-23 12:33] LABS: T4, Free (Free Thyroxine) 1.13 ng/dL (0.78-2.19)
== END | disposition home or self-care (01) ==
LOC: RADUSWWP 10:09
PROVIDERS: ATTEND Obstetrics & Gynecology
DX: N92.1 Excessive and frequent menstruation with irregular cycle (principal)
CPT/HCPCS: 76856; 84439; 84443

== ENCOUNTER 2018-06-19 07:45 | Day surgery (SDC) | payer OTHER ==
[2018-06-15 11:07] VITALS: BMI 23.9
--- NOTE | 2018-06-18 21:12 | P.HPOB ---
History of Present Illness H&P Date: 06/18/18 Chief Complaint: Menorrhagia with irregular cycle This is a 33-year-old female 6 para 4 who presents for dilation and curettage with hysteroscopy and NovaSure endometrial ablation secondary to menorrhagia with irregular cycle. She states her menses are occurring every 14- 20 days and lasting up to 7 days with 3-4 days very heavy. She has had a tubal ligation for control. Her pelvic ultrasound showed a uterus measuring 8.3 x 4 x 6.1 cm with an endometrial thickness of 0.6 cm. Normal ovaries were noted. In addition she complains of painful menses. She wishes definitive surgical treatment to control her bleeding. Obstetrical history: . History of 4 vaginal deliveries at term. Gynecologic history: She has had a tubal ligation. She has no history of sexual transmitted diseases. Social history: She is . She works full-time at [employer]. Review of Systems Constitutional: Denies chills, Denies fever Eyes: denies blurred vision, denies pain Ears, nose, mouth and throat: Denies headache, Denies sore throat Cardiovascular: Denies chest pain, Denies shortness of breath Respiratory: Denies cough Gastrointestinal: Denies abdominal pain, Denies diarrhea, Denies nausea, Denies vomiting Genitourinary: Reports dysmenorrhea, Reports menorrhagia Menstruation: Reports cycle < 21 days, Reports menses variable, Reports period heavy Musculoskeletal: Reports low back pain Integumentary: Denies pruritus, Denies rash Neurological: Denies numbness, Denies weakness Psychiatric: Denies anxiety, Denies depression Endocrine: Denies fatigue, Denies weight change Past Medical History Past Medical History: No Reported History Additional Past Medical History / Comment(s): hx. gestation diabetes History of Any Multi-Drug Resistant Organisms: None Reported Past Surgical History: Appendectomy, Hernia Repair, Tubal Ligation Additional Past Surgical History / Comment(s): D&C Past Anesthesia/Blood Transfusion Reactions: No Reported Reaction Past Psychological History: No Psychological Hx Reported Smoking Status: Current every day smoker Past Alcohol Use History: None Reported Past Drug Use History: None Reported - Past Family History Mother Family Medical History: Cancer Medications and Allergies Home Medications Medication Instructions Recorded Confirmed Type No Known Home Medications 06/15/18 06/15/18 History Allergies Allergy/AdvReac Type Severity Reaction Status Date / Time peanut Allergy Mild Rash/Hives Verified 06/15/18 11:07 Exam Osteopathic Statement: *. No significant issues noted on an osteopathic structural exam other than those noted in the History and Physical/Consult. HEENT: Within normal limits Heart: Regular rate and rhythm Lungs: Clear to auscultation bilaterally Abdomen: Soft, nontender Pelvic exam: Uterus is small, anteverted, with no adnexal masses or tenderness noted. Extremities: Negative Homans Assessment and Plan (1) Menorrhagia with irregular cycle Status: Acute Code(s): N92.1 - EXCESSIVE AND FREQUENT MENSTRUATION WITH IRREGULAR CYCLE SNOMED Code(s): 430950221 Plan: Proceed with dilation and curettage with hysteroscopy and NovaSure endometrial ablation. I have discussed the risks, benefits, and alternative therapies for the above- mentioned procedure and for both sedation/anesthesia as well as necessary blood products administration, if indicated, as they pertain to this patient. The patient has indicated her understanding and acceptance of the risks and procedures discussed.
[~2018-06-19 07:45] MED LIST changes: -HEPARIN SODIUM,PORCINE 5,000 UNIT/ML 1 ML VIAL SQ ONE; +LACTATED RINGERS 1,000 ML IV SCH; +LIDOCAINE 1% 20 ML VIAL (10MG/ML) FOR IV START INTRADERMA PRN; +MIDAZOLAM (PF) 2 MG/2 ML VIAL IV PRN; +Pre Op ABX Message 1 EACH MISC MISCELLANE ONE; -SCOPOLAMINE 1.5MG/72HR PATCH TRANSDERM ONE; -ceFAZolin IN SWFI 2 GM/20 ML SYRINGE IVP ONE
[2018-06-19] MEDS ORDERED: PROPOFOL 10 MG/ML 20 ML VIAL IV ONE (09:10)
[2018-06-19] MEDS ORDERED: fentaNYL (PF) 50 MCG/ML 2 ML AMP ONE (09:10)
[2018-06-19] MEDS ORDERED: KETOROLAC 30 MG/ML 1 ML VIAL ONE (09:10)
[2018-06-19] MEDS ORDERED: MIDAZOLAM 2 MG/2 ML VIAL ONE (09:10)
--- NOTE | 2018-06-19 09:45 | P.OP ---
Date of Procedure: 06/19/18 Preoperative Diagnosis: Menorrhagia with irregular cycle Postoperative Diagnosis: Same Procedure(s) Performed: Dilation and curettage with hysteroscopy and NovaSure endometrial ablation Anesthesia: other (Mask general) Surgeon: Allegra Blackwell Estimated Blood Loss (ml): 10 Pathology: other (Endometrial curettings) Condition: stable Disposition: same day Indications for Procedure: This is a 33-year-old female 6 para 4 who presents for dilation and curettage with hysteroscopy and NovaSure endometrial ablation secondary to menorrhagia with irregular cycle. She states her menses are occurring every 14- 20 days and lasting up to 7 days with 3-4 days very heavy. She has had a tubal ligation for control. Her pelvic ultrasound showed a uterus measuring 8.3 x 4 x 6.1 cm with an endometrial thickness of 0.6 cm. Normal ovaries were noted. In addition she complains of painful menses. She wishes definitive surgical treatment to control her bleeding. Operative Findings: Uterus is retroverted. Uterus is sounded to 8 cm and cervix is sounded to 3 cm. Upon hysteroscopy, a fairly uniform appearance was noted and both tubal ostia were visualized. A minimal amount of endometrial cuttings are obtained. Description of Procedure: The patient is taken to the operating room. She is placed in the dorsal lithotomy position after general anesthesia was given. She is prepped and draped in the normal sterile fashion. Bladder is drained with a catheter and then removed. Pelvic exam is performed under anesthesia. Uterus is found to be retroverted with no adnexal masses. She is placed in slight Trendelenburg position. A right angle retractor is used to visualize the cervix. The anterior lip of the cervix is grasped with a single-tooth tenaculum. Cervix is sounded to 3 cm. Uterus is sounded to 8 cm. Cervix is gently dilated with Garner dilators until a hysteroscope could be passed. Hysteroscopy is performed using normal saline. The above noted findings are noted. Next a polyp forceps is introduced. A minimal amount of tissue was obtained. Next medium-sized size sharp curette was placed. A minimal amount of endometrial curettings were obtained. Next NovaSure array was inserted into the endometrial cavity. Length was set at 5 cm and width was determined to be 4.3 cm. Next cavity assessment was attempted 4 times each time removing the array and reinserting. The cavity assessment failed each time. Hysteroscopy was again performed and no visible perforation or abnormality of the uterus was visualized. Next a new array was obtained and inserted. Next cavity assessment was completed and passed on the first try with the new array. Next NovaSure array was fired at 118 W for 66 seconds. Next the array was removed, inspected and then discarded. Next the hysteroscope was reinserted. Uniform charring was noted. Pictures were taken. Hysteroscope was removed. Single-tooth tenaculum was removed from the anterior lip of the cervix. Minimal bleeding was noted. All other instruments removed from the vagina. Sponge counts were correct. Patient is taken to recovery room in stable condition. First array will be sent back to educational audiologist for evaluation.
[2018-06-19 10:01] VITALS: TEMP 97.6
[2018-06-19 10:38] VITALS: RESP 16
[2018-06-19 11:09] VITALS: BP 114/75; PULSE 56
== END 2018-06-19 11:43 | disposition home or self-care (01) ==
LOC: OR 07:45
PROVIDERS: ATTEND Obstetrics & Gynecology
DX: N92.1 Excessive and frequent menstruation with irregular cycle (principal); F17.200 Nicotine dependence, unspecified, uncomplicated; Z98.51 Tubal ligation status; Z91.010 Allergy to peanuts
CPT/HCPCS: 81025; 88305; 58563; J2250; J1100; J2405; J3010; J1885; J2704

== ENCOUNTER 2018-10-18 16:25 | Emergency (ER) | payer OTHER ==
[2018-10-18 16:47] VITALS: RESP 18; TEMP 99.1
[2018-10-18] MEDS ORDERED: SODIUM CHLORIDE 0.9% 1,000 ML IV STA (18:23)
--- NOTE | 2018-10-18 19:02 | ED ---
General Adult HPI - General Chief complaint: Psychiatric Symptoms Stated complaint: depression Time Seen by Provider: 10/18/18 17:43 Source: patient, RN notes reviewed, old records reviewed Mode of arrival: ambulatory Limitations: no limitations - History of Present Illness Initial comments: 33-year-old female patient with no pertinent past medical history presents to ED for complaint of what she describes as depression. Patient reports that she gave to her last child approximately one year ago. Patient reports that since then she has been feeling very depressed. Patient states that she does find enjoyment in life, he states that she is not having pain, patient reports sleep disturbances. Patient states that she is still taking good care of her children. This is corroborated by patient's friend who is present during interview taking. Patient denies any suicidal or homicidal ideations. Patient reports that she was seen at [facility] today who recommended that she follow-up with her primary care provider. Patient reports that she went to her primary care provider's office and was recommended to come to ED for further evaluation. Denies any other complaints at this time. Systemic: Pt denies fatigue, fever/chills, rash. Pt denies weakness, night sweats, weight loss. Neuro: Pt denies headache, visual disturbances, syncope or pre-syncope. HEENT: Pt denies ocular discharge or irritation, otalgia, rhinorrhea, pharyngitis or notable lymphadenopathy. Cardiopulmonary: Pt denies chest pain, SOB, heart palpitations, dyspnea on exertion. Abdominal/GI: Pt denies abdominal pain, n/v/d. : Pt denies dysuria, burning w/ urination, frequency/urgency. Denies new onset urinary or bowel incontinence. MSK: Pt denies myalgia, loss of strength or function in extremities. Neuro: Pt denies new onset weakness, paresthesias. - Related Data Home Medications Medication Instructions Recorded Confirmed No Known Home Medications 06/15/18 10/18/18 Allergies Allergy/AdvReac Type Severity Reaction Status Date / Time peanut Allergy Mild Rash/Hives Verified 10/18/18 18:06 Review of Systems ROS Statement: Those systems with pertinent positive or pertinent negative responses have been documented in the HPI. ROS Other: All systems not noted in ROS Statement are negative. Past Medical History Past Medical History: No Reported History Additional Past Medical History / Comment(s): hx. gestation diabetes, post p artum depression History of Any Multi-Drug Resistant Organisms: None Reported Past Surgical History: Appendectomy, Hernia Repair, Tubal Ligation, Uterine Ablation Additional Past Surgical History / Comment(s): D&C Past Anesthesia/Blood Transfusion Reactions: No Reported Reaction Past Psychological History: Depression Smoking Status: Current every day smoker Past Alcohol Use History: None Reported Past Drug Use History: None Reported - Past Family History Mother Family Medical History: Cancer General Exam - General Exam Comments Initial Comments: Constitutional: NAD, AOX3, Pt has pleasant affect. HEENT: NC/AT, trachea midline, neck supple, no lymphadenopathy. Posterior pharynx non erythematous, without exudates. External ears appear normal, without discharge. Mucous membranes moist. Eyes PERRLA, EOM intact. There is no scleral icterus. No pallor noted. Cardiopulmonary: RRR, no murmurs, rubs or gallops, no JVD noted. Lungs CTAB in anterior and posterior malik. No peripheral edema. Abdominal exam: Abdomen soft and non-distended. Abdomen non-tender to palpation in all 4 quadrants. Bowel sounds active in LLQ. No hepatosplenomegaly. No ecchymosis Neuro: CN II-XII grossly intact. No nuchal rigidity. No raccon eyes, no garland sign, no hemotympanum. No cervical spinal tenderness. MSK: No posterior calf tenderness bilaterally, homans sign negative bilaterally. Posterior tibialis and radial pulse +2 bilaterally. Sensation intact in upper and lower extremities. Full active ROM in upper and lower extremities, 5/5 stregnth. Limitations: no limitations Course Vital Signs 10/18/18 10/18/18 16:43 20:53 Temperature 99.1 F Pulse Rate 78 68 Respiratory 18 18 Rate Blood Pressure 118/86 118/76 O2 Sat by Pulse 99 99 Oximetry Medical Decision Making - Medical Decision Making 33-year-old female patient with no pertinent past medical history presents to ED for complaint of what she describes as depression. Patient reports that she gave to her last child approximately one year ago. Patient reports that since then she has been feeling very depressed. Patient states that she does find enjoyment in life, he states that she is not having pain, patient reports sleep disturbances. Patient states that she is still taking good care of her children. This is corroborated by patient's friend who is p resent during interview taking. Patient denies any suicidal or homicidal ideations. Patient reports that she was seen at [facility] today who recommended that she follow-up with her primary care provider. Patient reports that she went to her primary care provider's office and was recommended to come to ED for further evaluation. Denies any other complaints at this time. Patient vital signs stable, physical exam didn't display acute pathology. Patient was evaluated by EPS recommended discharge and outpatient follow-up. CBC CMP did not acute pathology. Patient was administered 1 L normal saline. Additional discharge, follow up with primary care provider and [facility]. Case discussed with Dr. Smith. - Lab Data Result diagrams: 10/18/18 19:28 10/18/18 19:28 Lab Results 10/18/18 10/18/18 Range/Units 19:28 19:28 WBC 7.5 (3.8-10.6) k/uL RBC 4.58 (3.80-5.40) m/uL Hgb 14.5 (11.4-16.0) gm/dL Hct 42.2 (34.0-46.0) % MCV 92.1 (80.0-100.0) fL MCH 31.6 (25.0-35.0) pg MCHC 34.3 (31.0-37.0) g/dL RDW 12.4 (11.5-15.5) % Plt Count 218 (150-450) k/uL Neutrophils % 59 % Lymphocytes % 33 % Monocytes % 4 % Eosinophils % 2 % Basophils % 0 % Neutrophils # 4.4 (1.3-7.7) k/uL Lymphocytes # 2.5 (1.0-4.8) k/uL Monocytes # 0.3 (0-1.0) k/uL Eosinophils # 0.2 (0-0.7) k/uL Basophils # 0.0 (0-0.2) k/uL Sodium 141 (137-145) mmol/L Potassium 3.5 (3.5-5.1) mmol/L Chloride 108 H (98-107) mmol/L Carbon Dioxide 21 L (22-30) mmol/L Anion Gap 12 mmol/L BUN 10 (7-17) mg/dL Creatinine 0.60 (0.52-1.04) mg/dL Est GFR (CKD-EPI)AfAm >90 (>60 ml/min/1.73 sqM) Est GFR (CKD-EPI)NonAf >90 (>60 ml/min/1.73 sqM) Glucose 74 (74-99) mg/dL Calcium 9.6 (8.4-10.2) mg/dL Total Bilirubin 1.1 (0.2-1.3) mg/dL AST 22 (14-36) U/L ALT 17 (9-52) U/L Alkaline Phosphatase 58 (38-126) U/L Total Protein 8.0 (6.3-8.2) g/dL Albumin 5.0 (3.5-5.0) g/dL Disposition Clinical Impression: Depression Disposition: HOME SELF-CARE Condition: Stable Instructions (If sedation given, give patient instructions): Depression (ED) Additional Instructions: Patient to adhere to previously discussed treatment plan and will take medication(s) as directed. Patient to follow up with PCP in 1-2 days. Patient to return to ED if symptoms do not improve. Follow-up with primary care provider in 1-2 days, return to ER immediately if conditions worsen. Follow up with [facility] as directed. Is patient prescribed a controlled substance at d/c from ED?: No Referrals: Freya Poole MD [Primary Care Provider] - 1-2 days
[2018-10-18 19:43] LABS: Basophils % (A) 0 %; Eosinophils # (A) 0.2 k/uL (0-0.7); Eosinophils % (A) 2 %; HCT 42.2 % (34.0-46.0); HGB 14.5 gm/dL (11.4-16.0); Lymphocytes # (A) 2.5 k/uL (1.0-4.8); Lymphocytes % (A) 33 %; MCH 31.6 pg (25.0-35.0); MCHC 34.3 g/dL (31.0-37.0); MCV 92.1 fL (80.0-100.0); Mean Platelet Volume 7.6; Monocytes # (A) 0.3 k/uL (0-1.0); Monocytes % (A) 4 %; Neutrophils # (A) 4.4 k/uL (1.3-7.7); Neutrophils % (A) 59 %; Platelet Count 218 k/uL (150-450); RBC 4.58 m/uL (3.80-5.40); RDW 12.4 % (11.5-15.5); WBC 7.5 k/uL (3.8-10.6)
[2018-10-18 19:51] LABS: ALT 17 U/L (9-52); AST 22 U/L (14-36); African American GFR (CKD) >90 (>60 ml/min/1.73 sqM); Alkaline Phosphatase 58 U/L (38-126); Anion Gap 12 mmol/L; Blood Urea Nitrogen 10 mg/dL (7-17); Calcium 9.6 mg/dL (8.4-10.2); Carbon Dioxide 21 mmol/L (22-30); Chloride 108 mmol/L (98-107); Glucose 74 mg/dL (74-99); Potassium 3.5 mmol/L (3.5-5.1); Sodium 141 mmol/L (137-145); Total Bilirubin 1.1 mg/dL (0.2-1.3)
[2018-10-18 20:55] VITALS: BP 118/76; PULSE 68
== END 2018-10-18 20:53 | disposition home or self-care (01) ==
LOC: EC 16:25
DX: F32.9 Major depressive disorder, single episode, unspecified (principal); F17.200 Nicotine dependence, unspecified, uncomplicated; Z91.010 Allergy to peanuts
CPT/HCPCS: 36415; 80053; 85025; 96360; 99284

== ENCOUNTER 2022-11-20 16:58 | Emergency (ER) | payer OTHER ==
[2022-11-20] MEDS ORDERED: IBUPROFEN 600 MG TAB PO STA (17:21)
[2022-11-20] MEDS ORDERED: ACETAMINOPHEN TAB 325 MG TAB PO STA (17:21)
[2022-11-20] MEDS ORDERED: SODIUM CHLORIDE 0.9% 1,000 ML IV ONE (17:21)
--- NOTE | 2022-11-20 17:32 | ED ---
General Adult HPI - General Chief complaint: ENT Stated complaint: Ear ache Time Seen by Provider: 11/20/22 17:08 Source: patient Mode of arrival: ambulatory Limitations: no limitations - History of Present Illness Initial comments: 37-year-old female presenting with chief complaint of right ear pain. Patient states that she has had chronic ear pain for the last 6 years. She states that she uses Q-tips and "scrapes things out" daily. She does not see ENT. She states that for the last 3-4 days she has been experiencing increasing pain. Last night she was starting to have excessive discharge. There is swelling to the auricle and surrounding structures. She admits to fever and generalized body aches. No cough, congestion, sore throat. No chest pain or difficulty breathing. No nausea, vomiting, abdominal pain. - Related Data Previous Rx's Medication Instructions Recorded Ibuprofen [Motrin] 600 mg PO Q8HR PRN #20 tab 06/15/22 Ibuprofen [Motrin] 600 mg PO Q8HR PRN #20 tab 06/15/22 Ciprofloxacin HCl [Cipro] 500 mg PO BID 10 Days #20 tab 11/20/22 Allergies Allergy/AdvReac Type Severity Reaction Status Date / Time peanut Allergy Mild Rash/Hives Verified 11/20/22 17:06 Review of Systems ROS Statement: Those systems with pertinent positive or pertinent negative responses have been documented in the HPI. ROS Other: All systems not noted in ROS Statement are negative. Past Medical History Past Medical History: No Reported History Additional Past Medical History / Comment(s): hx. gestation diabetes, post depression History of Any Multi-Drug Resistant Organisms: None Reported Past Surgical History: Appendectomy, Hernia Repair, Tubal Ligation, Uterine Ablation Additional Past Surgical History / Comment(s): D&C Past Anesthesia/Blood Transfusion Reactions: No Reported Reaction Past Psychological History: Depression Smoking Status: Current every day smoker Past Alcohol Use History: None Reported Past Drug Use History: None Reported - Past Family History Mother Family Medical History: Cancer General Exam Limitations: no limitations General appearance: alert, in no apparent distress Head exam: Present: atraumatic, normocephalic, normal inspection Eye exam: Present: normal appearance Expanded Ear exam: Present: other (swelling and erythema to the pinna) TM/Canal exam: Erythema: Right TM, Mastoid Tenderness: Right TM, Canal Discharge: Right TM, Canal Tenderness: Right TM Neck exam: Present: normal inspection, full ROM Respiratory exam: Present: normal lung sounds bilaterally. Absent: respiratory distress, wheezes, rales, rhonchi, stridor Cardiovascular Exam: Present: regular rate, normal rhythm, normal heart sounds. Absent: systolic murmur, diastolic murmur, rubs, gallop, clicks Neurological exam: Present: alert, oriented X3, CN II-XII intact Psychiatric exam: Present: normal affect, normal mood Skin exam: Present: warm, dry, intact, normal color. Absent: rash Course Vital Signs 11/20/22 11/20/22 17:03 18:21 Temperature 100.1 F H Pulse Rate 102 H 86 Respiratory 18 16 Rate Blood Pressure 115/80 105/66 O2 Sat by Pulse 98 100 Oximetry Medical Decision Making - Medical Decision Making Was pt. sent in by a medical professional or institution (, PA, BORING MACHINE OPERATOR HELPER, urgent care, hospital, or skilled nursing...) When possible be specific @ -No Did you speak to anyone other than the patient for history (EMS, parent, family, police, friend...)? What history was obtained from this source @ -No Did you review nursing and triage notes (agree or disagree)? Why? @ -I reviewed and agree with nursing and triage notes Were old charts reviewed (outside hosp., previous admission, EMS record, old EKG, old radiological studies, urgent care reports/EKG's, skilled nursing records)? Report findings @ -No old charts were reviewed Differential Diagnosis (chest pain, altered mental status, abdominal pain women, abdominal pain men, vaginal bleeding, weakness, fever, dyspnea, syncope, headache, dizziness, GI bleed, back pain, seizure, CVA, palpatations, mental health, musculoskeletal)? @ -Differential includes otitis externa, otitis media, mastoiditis, this is not an all-inclusive list EKG interpreted by me (3pts min.). @ -As above X-rays interpreted by me (1pt min.). @ -None done CT interpreted by me (1pt min.). @ -Soft tissue and thickening of the right ear and thickening of skin within the right external auditory canal. Correlate for otitis externa and cellulitis. U/S interpreted by me (1pt. min.). @ -None done What testing was considered but not performed or refused? (CT, X-rays, U/S, labs)? Why? @ -None What meds were considered but not given or refused? Why? @ -None Did you discuss the management of the patient with other professionals (yash anne i.e. , PA, BORING MACHINE OPERATOR HELPER, lab, RT, psych nurse, social security specialist, team leader/research psychologist, teacher, traffic officer, corrections caseworker)? Give summary @ -No Was smoking cessation discussed for >3mins.? @ -No Was critical care preformed (if so, how long)? @ -No Were there social determinants of health that impacted care today? How? (Homelessness, low income, unemployed, alcoholism, drug addiction, transportati on, low edu. Level, literacy, decrease access to med. care, retirement, rehab)? @ -No Was there de-escalation of care discussed even if they declined (Discuss DNR or withdrawal of care, Hospice)? DNR status @ -No What co-morbidities impacted this encounter? (DM, HTN, Smoking, COPD, CAD, Cancer, CVA, ARF, Chemo, Hep., AIDS, mental health diagnosis, sleep apnea, morbid obesity)? @ -None Was patient admitted / discharged? Hospital course, mention meds given and route, prescriptions, significant lab abnormalities, going to OR and other pertinent info. @ -37-year-old female presenting with chief complaint of pain and swelling to the right ear. Has been ongoing for several days. She states that she has a history of chronic ear pain and discharge, has not been seen by ENT. Patient is not a diabetic. On physical examination there is redness and swelling of the auricle as well as tenderness and erythema to the mastoid. Labwork shows no leukocytosis or anemia. CT shows no evidence of mastoiditis, appears consistent with otitis externa and cellulitis. Patient will be treated with Ciprodex drops and Ciprofloxacin. Educated patient on these findings on the treatment plan. Follow-up with PCP. Report back to ER with any new or worsening symptoms. Discussed return parameters and answered all questions. Patient conveyed verbal understanding and agreed to the plan. I discussed this case in detail with my attending Dr. Ann Undiagnosed new problem with uncertain prognosis? @ -No Drug Therapy requiring intensive monitoring for toxicity (Heparin, Nitro, Insulin, Cardizem)? @ -No Were any procedures done? @ -No Diagnosis/symptom? @ -Otitis externa and cellulitis Acute, or Chronic, or Acute on Chronic? @ -Acute Uncomplicated (without systemic symptoms) or Complicated (systemic symptoms)? @ -Complicated Side effects of treatment? @ -No Exacerbation, Progression, or Severe Exacerbation? @ -No Poses a threat to life or bodily function? How? (Chest pain, USA, CT, pneumonia, PE, COPD, DKA, ARF, appy, cholecystitis, CVA, Diverticulitis, Homicidal, Suicidal, threat to staff... and all critical care pts) @ -Low likelihood - Lab Data Result diagrams: 11/20/22 19:25 11/20/22 18:52 Lab Results 11/20/22 11/20/22 Range/Units 18:52 19:25 WBC 5.6 (3.8-10.6) k/uL RBC 3.90 (3.80-5.40) m/uL Hgb 12.4 (11.4-16.0) gm/dL Hct 36.1 (34.0-46.0) % MCV 92.6 (80.0-100.0) fL MCH 31.8 (25.0-35.0) pg MCHC 34.3 (31.0-37.0) g/dL RDW 12.1 (11.5-15.5) % Plt Count 123 L (150-450) k/uL MPV 8.6 Neutrophils % 78 % Lymphocytes % 15 % Monocytes % 6 % Eosinophils % 0 % Basophils % 0 % Neutrophils # 4.4 (1.3-7.7) k/uL Lymphocytes # 0.8 L (1.0-4.8) k/uL Monocytes # 0.3 (0-1.0) k/uL Eosinophils # 0.0 (0-0.7) k/uL Basophils # 0.0 (0-0.2) k/uL Sodium 132 L (137-145) mmol/L Potassium 3.5 (3.5-5.1) mmol/L Chloride 104 (98-107) mmol/L Carbon Dioxide 20 L (22-30) mmol/L Anion Gap 8 mmol/L BUN 8 (7-17) mg/dL Creatinine 0.63 (0.52-1.04) mg/dL Est GFR (CKD-EPI)AfAm >90 (>60 ml/min/1.73 sqM) Est GFR (CKD-EPI)NonAf >90 (>60 ml/min/1.73 sqM) Glucose 83 (74-99) mg/dL Calcium 8.4 (8.4-10.2) mg/dL Total Bilirubin 0.8 (0.2-1.3) mg/dL AST 18 (14-36) U/L ALT 14 (4-34) U/L Alkaline Phosphatase 45 (38-126) U/L Total Protein 6.1 L (6.3-8.2) g/dL Albumin 3.5 (3.5-5.0) g/dL Disposition Clinical Impression: Otitis externa, Cellulitis Disposition: HOME SELF-CARE Condition: Fair Instructions (If sedation given, give patient instructions): Swimmer's Ear (ED), Cellulitis (ED) Additional Instructions: Follow-up with PCP and ENT. Report back to ER with any new or worsening symptoms. Take Motrin and Tylenol as needed for fever and pain control. Prescriptions: Ciprofloxacin HCl [Cipro] 500 mg PO BID 10 Days #20 tab Is patient prescribed a controlled substance at d/c from ED?: No Referrals: Freya Poole MD [REFERRING] - 1-2 days Clark Torrez MD [STAFF PHYSICIAN] - 1-2 days Time of Disposition: 20:07
[2022-11-20 18:22] VITALS: RESP 16
--- NOTE | 2022-11-20 19:16 | CT ---
EXAMINATION TYPE: CT iac w con CT DLP: 277.5 mGycm, Automated exposure control for dose reduction was used. DATE OF EXAM: 11/20/2022 6:44 PM INDICATION: Patient age:Female; 37 years old; Reason for study: mastoid erythema/tenderness; COMPARISON: None. TECHNIQUE: Multiple thin axial images were obtained through the temporal bones and internal auditory canals. Additional coronal reformatted images were obtained. No IV contrast was utilized. STENVER a nd POSCHL views were created on a separate work station. CT Contrast: Contrast used:100 mL of Isovue 300 with IV Contrast, none. FINDINGS: Right Temporal Bone: External Ear: The external auditory canal demonstrates mild skin thickening., The tympanic membrane i s present and unremarkable. There is fat stranding and edematous soft tissues around the right ear. N o subcutaneous organizing fluid collection. Middle Ear: The ossicles demonstrate a normal appearance. Prussak's space is clear and the scutum i s intact. There is no evidence of osseous erosion and the tegmen tympani is intact. Inner Ear: Cochlea, vestibule and semi circular canals are unremarkable. No evidence of carotid diego l dehiscence. Two and a half turns of the cochlea are identified. The vestibular aqueduct is not enl arged. Mastoid Air Cells: The mastoid air cells are clear. The tegmen mastoideum is intact. The aditus ad an trum is clear. Internal Auditory Canal: The internal auditory canal is unremarkable. Left Temporal Bone: External Ear: The external auditory canal is unremarkable, The tympanic membrane is present and unrem arkable. Middle Ear: The ossicles demonstrate a normal appearance. Prussak's space is clear and the scutum i s intact. There is no evidence of osseous erosion and the tegmen tympani is intact. Inner Ear: Cochlea, vestibule and semi circular canals are unremarkable. No evidence of carotid diego l dehiscence. Two and a half turns of the cochlea are identified. The vestibular aqueduct is not enl arged. Mastoid Air Cells: The mastoid air cells are clear. The tegmen mastoideum is intact. The aditus ad an trum is clear. Internal Auditory Canal: The internal auditory canal is unremarkable. IMPRESSION: Soft tissue and thickening of the right ear and thickening of the skin within the right external shelby tory canal. Correlate for otitis externa and cellulitis.
[2022-11-20 19:17] LABS: ALT 14 U/L (4-34); AST 18 U/L (14-36); African American GFR (CKD) >90 (>60 ml/min/1.73 sqM); Albumin 3.5 g/dL (3.5-5.0); Alkaline Phosphatase 45 U/L (38-126); Anion Gap 8 mmol/L; Blood Urea Nitrogen 8 mg/dL (7-17); Calcium 8.4 mg/dL (8.4-10.2); Carbon Dioxide 20 mmol/L (22-30); Chloride 104 mmol/L (98-107); Glucose 83 mg/dL (74-99); Non-African American GFR(CKD) >90 (>60 ml/min/1.73 sqM); Potassium 3.5 mmol/L (3.5-5.1); Sodium 132 mmol/L (137-145); Total Bilirubin 0.8 mg/dL (0.2-1.3); Total Protein 6.1 g/dL (6.3-8.2)
[2022-11-20 19:41] LABS: Basophils % (A) 0 %; Eosinophils % (A) 0 %; HCT 36.1 % (34.0-46.0); HGB 12.4 gm/dL (11.4-16.0); Lymphocytes # (A) 0.8 k/uL (1.0-4.8); Lymphocytes % (A) 15 %; MCH 31.8 pg (25.0-35.0); MCHC 34.3 g/dL (31.0-37.0); MCV 92.6 fL (80.0-100.0); Mean Platelet Volume 8.6; Monocytes # (A) 0.3 k/uL (0-1.0); Monocytes % (A) 6 %; Neutrophils # (A) 4.4 k/uL (1.3-7.7); Neutrophils % (A) 78 %; Platelet Count 123 k/uL (150-450); RDW 12.1 % (11.5-15.5); WBC 5.6 k/uL (3.8-10.6)
[2022-11-20] MEDS ORDERED: LEVOFLOXACIN 750 MG TAB PO STA (20:00)
[2022-11-20] MEDS ORDERED: CIPROFLOXACIN-DEXAMETH 0.3-0.1% DROPS 7.5 ML BTL RIGHT EAR SCH (21:00)
[2022-11-20 21:23] VITALS: TEMP 98.9
[2022-11-20 21:26] VITALS: BP 100/61; PULSE 73
== END 2022-11-20 21:15 | disposition home or self-care (01) ==
LOC: EC 16:58
DX: H60.11 Cellulitis of right external ear (principal); F17.200 Nicotine dependence, unspecified, uncomplicated
CPT/HCPCS: 36415; 80053; 85025; 70481; 99284; 96360; Q9967